=== PATIENT | female | born 1955 | race Caucasian/White ===

== ENCOUNTER 2016-08-02 00:44 | Inpatient (IN) | payer OTHER, MEDICARE ==
[~2016-08-02] VITALS: Ht 157.5 cm; Wt 66.9 kg
[2016-08-02] VITALS (13 sets, daily range): BP systolic 104–147; BP diastolic 62–93; PULSE 59–115; RESP 14–22; TEMP 97.2–98.3; O2SAT 90–96
[2016-08-02] MEDS ORDERED: HYDROmorphone HCL PF 1 MG/ML VIAL IV PUSH ONE (01:15)
--- NOTE | 2016-08-02 02:03 | PD ---
HPI Chief Complaint: Fall Time Seen by Provider: 01:11 Travel History International Travel<30 days: No Contact w/Intl Traveler<30days: No Traveled to known affect area: No History of Present Illness HPI This is a 61-year-old female who presents to the emergency department having had a mechanical fall while intoxicated. Patient admits to drinking multiple alcoholic beverages this evening. She fell onto her right hip and has severe right hip pain, constant, worse with moving, improved with rest. She doesn't think she hit her head. PFSH Past Medical History Hepatitis: Yes (C) Hypertension: Yes Medical other: Yes (LIVER FAILURE, LUPUS) Past Surgical History Surgical History: No Previous Surgery Social History Alcohol Use: Yes (OCCATIONALLY) Tobacco Use: Yes (04/02 PPD) Substance Use: No Allergies-Medications (Allergen,Severity, Reaction): Coded Allergies: Sulfa (Verified Allergy, Unknown, 08/02/16) Review of Systems ROS Limitations: Intoxication Physical Exam Narrative GENERAL: Chronically unwell-appearing SKIN: Focused skin assessment warm and dry. HEAD: Atraumatic. Normocephalic. EYES: Pupils equal and round. No injection or drainage. ENT: Moist mucous membranes NECK: Trachea midline. CARDIOVASCULAR: Regular rate and rhythm. No murmur appreciated. 2+ bilateral DP pulses with normal capillary refill. RESPIRATORY: Clear to auscultation. Breath sounds equal bilaterally. GASTROINTESTINAL: Abdomen soft, non-tender, nondistended. MUSCULOSKELETAL: Severe pain with range of motion of the right hip, right hip is externally rotated and shortened NEUROLOGICAL: Awake and alert. No obvious cranial nerve deficits. Moving all extremities. PSYCHIATRIC: Poor insight and judgment, slurred speech, poor coordination Data Data Last Documented VS Vital Signs Date Time Temp Pulse Resp B/P Pulse Ox O2 Delivery O2 Flow Rate FiO2 08/02/16 05:18 112 16 145/89 92 Nasal Cannula 6 08/02/16 03:33 50 08/02/16 00:54 98.0 Orders Hip, Uni(Ap&Lat) W Ap Pelvis (08/02/16 ) Hydromorphone Pf Inj (Dilaudid Pf Inj) (08/02/16 01:15) Complete Blood Count With Diff (08/02/16 01:12) Comprehensive Metabolic Panel (08/02/16 01:12) Prothrombin Time / Inr (Pt) (08/02/16 01:12) Act Partial Throm Time (Ptt) (08/02/16 01:12) Alcohol (Ethanol) (08/02/16 01:12) ^ Insert Iv (08/02/16 01:12) Chest, Single Ap (08/02/16 ) Ct Brain W/O Iv Contrast(Rout) (08/02/16 ) Ct Thorax/ Chest W Iv Contrast (08/02/16 ) Iohexol 350 Inj (Omnipaque 350 Inj) (08/02/16 03:15) Naloxone Inj (Narcan Inj) (08/02/16 05:15) Admit Order (Ed Use Only) (08/02/16 05:20) Consult Orthopedic (08/02/16 ) Labs Laboratory Tests Test 08/02/16 01:50 White Blood Count 12.8 TH/MM3 Red Blood Count 4.31 MIL/MM3 Hemoglobin 14.5 GM/DL Hematocrit 42.3 % Mean Corpuscular Volume 98.0 FL Mean Corpuscular Hemoglobin 33.6 PG Mean Corpuscular Hemoglobin 34.3 % Concent Red Cell Distribution Width 16.3 % Platelet Count 122 TH/MM3 Mean Platelet Volume 9.1 FL Neutrophils (%) (Auto) 60.2 % Lymphocytes (%) (Auto) 27.4 % Monocytes (%) (Auto) 10.9 % Eosinophils (%) (Auto) 1.0 % Basophils (%) (Auto) 0.5 % Neutrophils # (Auto) 7.7 TH/MM3 Lymphocytes # (Auto) 3.5 TH/MM3 Monocytes # (Auto) 1.4 TH/MM3 Eosinophils # (Auto) 0.1 TH/MM3 Basophils # (Auto) 0.1 TH/MM3 CBC Comment DIFF FINAL Differential Comment Prothrombin Time 13.2 SEC Prothromb Time International 1.2 RATIO Ratio Activated Partial 29.2 SEC Thromboplast Time Sodium Level 142 MEQ/L Potassium Level 4.0 MEQ/L Chloride Level 107 MEQ/L Carbon Dioxide Level 25.4 MEQ/L Anion Gap 10 MEQ/L Blood Urea Nitrogen 7 MG/DL Creatinine 0.54 MG/DL Estimat Glomerular Filtration 115 ML/MIN Rate Random Glucose 106 MG/DL Calcium Level 8.4 MG/DL Total Bilirubin 2.1 MG/DL Aspartate Amino Transf 52 U/L (AST/SGOT) Alanine Aminotransferase 38 U/L (ALT/SGPT) Alkaline Phosphatase 87 U/L Total Protein 7.2 GM/DL Albumin 3.5 GM/DL Ethyl Alcohol Level 324 MG/DL [facility] Medical Decision Making Medical Screen Exam Complete: Yes Emergency Medical Condition: Yes Interpretation(s) Afebrile, tachycardic, hypertensive Leukocytosis Total bilirubin is 2.1 INR is 1.2 Alcohol is 324 Last 24 hours Impressions Hip and Pelvis X-Ray 08/02/16 Signed Impressions: Service Date/Time: Tuesday, August 02, 2016 01:41 - CONCLUSION: Mildly displaced right femoral neck fracture. Rey Santacruz MD Head CT 08/02/16 Signed Impressions: Service Date/Time: Tuesday, August 02, 2016 03:11 - CONCLUSION: Nonspecific white matter changes. No acute intracranial abnormality. Rey Santacruz MD Chest X-Ray 08/02/16 Signed Impressions: Service Date/Time: Tuesday, August 02, 2016 01:41 - CONCLUSION: 1. Scattered nodules. 2. Widened mediastinum which could be related to adenopathy or aneurysm. 3. Contrasted CT chest recommended. Rey Santacruz MD Chest CT 08/02/16 Signed Impressions: Service Date/Time: Tuesday, August 02, 2016 03:15 - CONCLUSION: 1. Bibasilar atelectasis. 2. No mass, adenopathy or aneurysm. 3. Cirrhotic liver with cholelithiasis. Rey Santacruz MD Differential Diagnosis Femur fracture, pubic ramus fracture, contusion, acute alcohol intoxication Narrative Course This is a 61-year-old female who presents to the emergency department having been drinking alcohol when she fell. She has gross deformity to the right lower extremity. She was placed on a monitor and an IV was established. She was given 0.5 mg of Dilaudid for pain control. X-rays were obtained which demonstrated a right femoral neck fracture. Patient has no other evident injuries. She was really hypoxic particularly with sleeping. This is likely in the setting of acute alcohol intoxication and opiate pain management. She was given a small dose of Narcan which improved her oxygenation. Patient will be admitted for orthopedic consultation. Physician Communication Physician Communication Discussed with Dr. Ruelas Diagnosis Primary Impression: Femoral neck fracture Qualified Code: S72.001A - Closed fracture of neck of right femur, initial encounter Additional Impression: Acute alcohol intoxication Qualified Code: F10.920 - Acute alcohol intoxication, uncomplicated Admitting Information Admitting Physician Requests: it Zainab Jo MD August 02, 2016 02:03
[2016-08-02 02:14] LABS: AUTOMATED NEUTROPHIL # 7.7 TH/MM3 (1.8-7.7); BASOPHIL # 0.1 TH/MM3 (0-0.2); BASOPHIL % 0.5 % (0.0-2.0); EOSINOPHIL # 0.1 TH/MM3 (0-0.4); HEMATOCRIT 42.3 % (35.0-46.0); HEMO FLAGS DIFF FINAL; LYMPH % 27.4 % (9.0-44.0); LYMPHOCYTE # 3.5 TH/MM3 (1.0-4.8); MEAN CORPUSCULAR HEMOGLOBIN 33.6 PG (27.0-34.0); MEAN CORPUSCULAR HGB CONC 34.3 % (32.0-36.0); MONO % 10.9 % (0.0-8.0); NEUT % 60.2 % (16.0-70.0); PLATELET COUNT 122 TH/MM3 (150-450); RED BLOOD COUNT 4.31 MIL/MM3 (4.00-5.30); RED CELL DISTRIBUTION WIDTH 16.3 % (11.6-17.2); WHITE BLOOD COUNT 12.8 TH/MM3 (4.0-11.0)
--- NOTE | 2016-08-02 02:17 | RADRPT ---
EXAM DATE/TIME: 08/02/2016 01:41 [facility] COMPARISON: No previous studies available for comparison. INDICATIONS : Right hip pain from a fall. MEDICAL HISTORY : Hepatitis C. SURGICAL HISTORY : None. ENCOUNTER: Initial ACUITY: 1 day PAIN SCORE: 10/10 LOCATION: Right Hip FINDINGS: Examination of the right hip was performed with AP Pelvis. Mildly displaced femoral neck fracture. T he acetabulum is grossly intact. CONCLUSION: Mildly displaced right femoral neck fracture. Rey Santacruz MD on August 02, 2016 at 2:15 Board Certified Radiologist. This report was verified electronically.
--- NOTE | 2016-08-02 02:20 | RADRPT ---
EXAM DATE/TIME: 08/02/2016 01:41 [facility] COMPARISON: No previous studies available for comparison. INDICATIONS : Evaluate for any pulmonary disease as patient is pre-op for right hip surgery. MEDICAL HISTORY : Hepatitis C. SURGICAL HISTORY : None. ENCOUNTER: Initial ACUITY: 1 day PAIN SCORE: 0/10 LOCATION: Bilateral chest FINDINGS: A single view of the chest demonstrates prominent perispinal prominence/wide mediastinum. The heart m ildly enlarged. Few small nodular densities in the upper lobes. No consolidation or pleural effusion. . Osseous structures are intact. CONCLUSION: 1. Scattered nodules. 2. Widened mediastinum which could be related to adenopathy or aneurysm. 3. Contrasted CT chest recommended. Rey Santacruz MD on August 02, 2016 at 2:16 Board Certified Radiologist. This report was verified electronically.
[2016-08-02 02:22] LABS: APTT (PATIENT) 29.2 SEC (24.3-30.1); INTERNATIONAL NORMALIZED RATIO 1.2 RATIO; PROTHROMBIN TIME - PATIENT 13.2 SEC (9.8-11.6)
[2016-08-02 02:38] LABS: ALKALINE PHOSPHATASE 87 U/L (45-117); ALT (GPT) 38 U/L (10-53); ANION GAP 10 MEQ/L (5-15); AST (GOT) 52 U/L (15-37); BICARBONATE 25.4 MEQ/L (21.0-32.0); BLOOD UREA NITROGEN 7 MG/DL (7-18); CHLORIDE 107 MEQ/L (98-107); GLOMERULAR FILTRATION RATE 115 ML/MIN (>89); SODIUM (NA) 142 MEQ/L (136-145); TOTAL BILIRUBIN ADULT 2.1 MG/DL (0.2-1.0)
[2016-08-02] MEDS ORDERED: IOHEXOL 350 MG/ML 10 ML VIAL (for RAD DIAG) IV ONE (03:15)
--- NOTE | 2016-08-02 03:33 | RADRPT ---
EXAM DATE/TIME: 08/02/2016 03:11 [facility] COMPARISON: No previous studies available for comparison. INDICATIONS : Trauma; fall. ETOH RADIATION DOSE: 56.35 CTDIvol (mGy) MEDICAL HISTORY : Hypertension. Lupus. Hepatitis C. SURGICAL HISTORY : None. ENCOUNTER: Initial ACUITY: 1 day PAIN SCALE: Non-responsive LOCATION: cranial TECHNIQUE: Multiple contiguous axial images were obtained of the head. Using automated exposure control and adj ustment of the mA and/or kV according to patient size, radiation dose was kept as low as reasonably a chievable to obtain optimal diagnostic quality images. FINDINGS: CEREBRUM: Scattered areas low-attenuation throughout the white matter. The ventricles are normal for age. No e vidence of midline shift, mass lesion, hemorrhage or acute infarction. No extra-axial fluid collecti ons are seen. POSTERIOR FOSSA: The cerebellum and brainstem are intact. The 4th ventricle is midline. The cerebellopontine angle i s unremarkable. EXTRACRANIAL: The visualized portion of the orbits is intact. SKULL: The calvaria is intact. No evidence of skull fracture. CONCLUSION: Nonspecific white matter changes. No acute intracranial abnormality. Rey Santacruz MD on August 02, 2016 at 3:30 Board Certified Radiologist. This report was verified electronically.
--- NOTE | 2016-08-02 03:34 | RADRPT ---
EXAM DATE/TIME: 08/02/2016 03:15 [facility] COMPARISON: CHEST SINGLE AP, August 02, 2016, 1:41. INDICATIONS : Abnormal chest x-ray. IV CONTRAST: 71 cc Omnipaque 350 (iohexol) IV RADIATION DOSE: 3.4 CTDIvol (mGy) MEDICAL HISTORY : Hypertension. Lupus. Hepatitis C. SURGICAL HISTORY : None. ENCOUNTER: Initial ACUITY: 1 day PAIN SCALE: Non-responsive LOCATION: chest TECHNIQUE: Volumetric scanning of the chest was performed. Using automated exposure control and adjustment of t he mA and/or kV according to patient size, radiation dose was kept as low as reasonably achievable to obtain optimal diagnostic quality images. FINDINGS: LUNGS: There is no consolidation or pneumothorax. There is bibasilar atelectasis. No concerning pulmonary n odule is visualized. PLEURA: There is no pleural thickening or pleural effusion. MEDIASTINUM: The heart and great vessels demonstrate no acute abnormality. There is no mediastinal or hilar lymph adenopathy. AXILLAE: Within normal limits. No lymphadenopathy. SKELETAL: Within normal limits for patient age. MISCELLANEOUS: The visualized upper abdominal organs demonstrate no acute abnormality. Cirrhotic liver with cholelit hiasis. CONCLUSION: 1. Bibasilar atelectasis. 2. No mass, adenopathy or aneurysm. 3. Cirrhotic liver with cholelithiasis. Rey Santacruz MD on August 02, 2016 at 3:31 Board Certified Radiologist. This report was verified electronically.
[2016-08-02] MEDS ORDERED: NALOXONE HCL 0.4 MG/ML AMP IV PUSH ONE (05:15)
[2016-08-02] MEDS ORDERED: ONDANSETRON HCL 4 MG/2 ML VIAL IVP PRN (05:30)
[2016-08-02] MEDS ORDERED: LORazepam 2 MG/ML VIAL IV PUSH PRN ×4 (05:30)
[2016-08-02] MEDS ORDERED: SODIUM CHLORIDE 0.9% FLUSH 10 ML FLUSH IV FLUSH PRN (05:30)
[2016-08-02] MEDS ORDERED: LORazepam 2 MG TAB PO PRN (05:30)
[2016-08-02] MEDS ORDERED: HALOPERIDOL LACTATE 5 MG/ML AMP IM PRN (05:30)
[2016-08-02] MEDS ORDERED: MORPHINE SULFATE 4 MG/ML INJ IV PRN (05:30)
[2016-08-02] MEDS ORDERED: ACETAMINOPHEN 325 MG TAB PO PRN (05:30)
[2016-08-02] MEDS ORDERED: LORazepam 1 MG TAB PO PRN (05:30)
[2016-08-02] MEDS ORDERED: ACETAMINOPHEN/HYDROcodone 325 MG/5 MG TAB PO PRN (05:30)
[2016-08-02] MEDS ORDERED: FLUMAZENIL 0.5 MG/5 ML VIAL IV PUSH PRN (05:30)
[2016-08-02] MEDS ORDERED: BISACODYL 10 MG SUPP RECTAL PRN (05:30)
[2016-08-02] MEDS: MULTIVITAMIN INJ 10 ML, FOLIC ACID INJ 1 MG in SODIUM CHLORID 0.9% 500 ML INJ 500 ML IV SCH (06:00)
[2016-08-02] MEDS: THIAMINE INJ 100 MG in SODIUM CHLORIDE 0.9% INJ 100 ML IV SCH (06:00)
--- NOTE | 2016-08-02 06:43 | PD.ORT.PN ---
Subjective Subjective Remarks Patient examined bedside. Mechanical fall last night after having several alcoholic drinks. Complains of severe right hip pain. Objective Vitals Vital Signs Date Time Temp Pulse Resp B/P Pulse Ox O2 Delivery O2 Flow Rate FiO2 08/02/16 05:42 93 Nasal Cannula 5.00 08/02/16 05:18 112 16 145/89 92 Nasal Cannula 6 08/02/16 03:33 112 14 126/69 90 50 08/02/16 03:32 14 08/02/16 02:03 93 16 126/85 94 Nasal Cannula 2 08/02/16 00:54 98.0 102 16 132/93 95 Result Diagram: 08/02/16 0150 08/02/16 0150 Other Results Laboratory Tests Test 08/02/16 01:50 Prothrombin Time 13.2 SEC (9.8-11.6) Prothromb Time International 1.2 RATIO Ratio Imaging Last 24 hours Impressions Hip and Pelvis X-Ray 08/02/16 0000 Signed Impressions: Service Date/Time: Tuesday, August 02, 2016 01:41 - CONCLUSION: Mildly displaced right femoral neck fracture. Rey Santacruz MD Head CT 08/02/16 0000 Signed Impressions: Service Date/Time: Tuesday, August 02, 2016 03:11 - CONCLUSION: Nonspecific white matter changes. No acute intracranial abnormality. Rey Santacruz MD Chest X-Ray 08/02/16 0000 Signed Impressions: Service Date/Time: Tuesday, August 02, 2016 01:41 - CONCLUSION: 1. Scattered nodules. 2. Widened mediastinum which could be related to adenopathy or aneurysm. 3. Contrasted CT chest recommended. Rey Santacruz MD Chest CT 08/02/16 0000 Signed Impressions: Service Date/Time: Tuesday, August 02, 2016 03:15 - CONCLUSION: 1. Bibasilar atelectasis. 2. No mass, adenopathy or aneurysm. 3. Cirrhotic liver with cholelithiasis. Rey Santacruz MD Objective Remarks Bilateral upper extremities: Full range of motion neurovascular intact Left lower extremity no pain with hip range of motion Right lower extremity: No pain to palpation of knee or ankle. Distally she has intact sensation good capillary refills. Pain with any motion of the hip Assessment & Plan Assessment and Plan Right femoral neck fracture Nothing by mouth Sign consents Surgery this morning with Dr. Peoples Medical management with EtOH protocol Camilo Brunner Jr. August 02, 2016 06:43
[2016-08-02] MEDS ORDERED: METOPROLOL TARTRATE 25 MG TAB PO PRN (07:15)
[2016-08-02] MEDS ORDERED: POVIDONE IODINE 5% (ANTISEPSIS KIT) 4 APPLICATIONS EACH NARE PRN (07:15)
[2016-08-02] MEDS ORDERED: CHLORHEXIDINE GLUCONATE 2 % 1 PACK (2 CLOTHS) TOPICAL PRN (07:15)
[2016-08-02] MEDS ORDERED: LACTATED RINGER'S 1000 ML IV PRN (07:15)
[2016-08-02] MEDS ORDERED: INSULIN HUMAN REGULAR 1,000 UNITS/10 ML VIAL SQ PRN (07:15)
[2016-08-02] MEDS ORDERED: SODIUM CHLORID 0.9% 500 ML IV PRN (07:15)
[2016-08-02] MEDS ORDERED: VANCOMYCIN HCL 1000 MG VIAL ONE (07:25)
[2016-08-02] MEDS ORDERED: GENTAMICIN SULFATE 80 MG/2 ML VIAL ONE (07:25)
[2016-08-02] MEDS ORDERED: fentaNYL CITRATE 250 MCG/5 ML AMP ONE (07:36)
[2016-08-02] MEDS ORDERED: MIDAZOLAM HCL 5 MG/5 ML VIAL ONE (07:36)
[2016-08-02] MEDS ORDERED: ceFAZolin INJ 1,000 MG VIAL ONE (07:43)
[2016-08-02] MEDS ORDERED: ceFAZolin 2 GM PREMIX 50 ML ONE (07:43)
[2016-08-02] MEDS ORDERED: TRANEXAMIC ACID INJ 1,000 MG/10 ML AMP ONE (07:54)
[2016-08-02] MEDS ORDERED: TRANEXAMIC ACID INJ 855 MG in SODIUM CHLORIDE 0.9% INJ 100 ML IV SCH (08:00)
[2016-08-02] MEDS ORDERED: SODIUM CHLORIDE 0.9% INJ 100 ML ONE (08:01)
[2016-08-02] MEDS ORDERED: TRANEXAMIC ACID INJ 1,000 MG/10 ML AMP IV ONE (08:03)
--- NOTE | 2016-08-02 08:57 | PD.OP ---
cc: Shekhar Guzman MD Operative Report Date of Surgery: August 02, 2016 Preoperative Diagnosis: Displaced right femoral neck fracture Postoperative Diagnosis: Procedure: Right hip hemiarthroplasty Surgeon: Shekhar Guzman Necktie Stitcher(s): ANSHUL Aldridge PA-C The surgical procedure was assisted by my physician elementary assistant principal. My P.A. presence was necessary throughout this case for the manipulation and positioning of the surgical extremity. My P.A. was assisting me throughout the duration of this procedure. The skill set of a physician elementary assistant principal was medically necessary to complete this procedure. During the surgical case the gastroenterology technician was working at the back table and the physician elementary assistant principal was directly assisting me. Operation and Findings: PLAN OF ACTIVITY Weight bear as tolerated. IMPLANTS USED [employer] Corail size 12 collared stem with size [47] bipolar head and [+5] neck. DRAIN: 7 mm Murray-Jorgensen drain DETAILS OF PROCEDURE This patient was brought into the operating room and placed on the OR table. The patient was given anesthesia. The patient received IV antibiotics. The patient was then placed in lateral decubitus position. The hip and leg were prepped with alcohol, followed by Hibiclens and draped in a usual sterile fashion. Clean air was used for this procedure. Time out procedure was performed. The procedure began with a 5 inch incision over the posterolateral hip. The subcutaneous tissue was dissected with the Bovie. The iliotibial band were split in line with fibers. The Charnley retractor was placed. The piriformis and external rotators were released from the femur and tagged with a #1 Vicryl suture. The capsule is now incised and tagged with #1 Vicryl. The femoral neck fracture was now visualized. A corkscrew was now used to remove the femoral head. The femoral head was sized and measured. Soft tissue was now protected. The hip skid was placed underneath the femoral neck. An oscillating saw was used to make a femoral neck cut. At this point attention was turned to preparation of the proximal femur. A box osteotome was used to remove the lateral cortex of the femoral neck. The T- handle reamer was used to open the femoral canal. Next, the canal was broached. A lateralizing reamer was used to help lateralize the prosthesis. At this point a trial head and neck were placed. The hip was reduced. The patient was found to have excellent stability with good range of motion. Trial components were removed. Soft tissue and bone were thoroughly irrigated. A Corail stem was now opened. The stem was now impacted into the proximal femur. Care was taken to keep appropriate anteversion. The head and neck were now impacted onto the stem. The hip was again reduced. The hip was found to have good range of motion and good stability. Leg lengths were clinically equal. The wound was thoroughly irrigated. The capsule, piriformis and iliotibial band were closed with #1 Vicryl. Subcutaneous tissue was closed with 3-0 Vicryl. The skin was closed with kyara. A sterile dressing was applied with Primapore. The patient was placed into a knee immobilizer. The patient was awakened and transferred to the recovery room in stable condition. Needle and sponge counts were correct. Shekhar Guzman MD August 02, 2016 08:57
[2016-08-02] MEDS ORDERED: MORPHINE SULFATE 4 MG/ML INJ IV PUSH PRN (09:00)
[2016-08-02] MEDS ORDERED: SODIUM CHLORIDE 0.9% FLUSH 5 ML FLUSH IVF PRN (09:00)
[2016-08-02] MEDS ORDERED: SODIUM CHLORIDE 0.9% FLUSH 5 ML FLUSH IVF SCH (09:00)
[2016-08-02] MEDS ORDERED: ACETAMINOPHEN/HYDROcodone 325 MG/7.5 MG TAB PO PRN (09:00)
[2016-08-02] MEDS: SODIUM CHLORIDE 0.9% FLUSH 10 ML FLUSH IV FLUSH SCH ×2 (09:00→20:47)
[2016-08-02] MEDS ORDERED: Post-op Orders (for Pharmacy) MISC XX ONE (09:00)
[2016-08-02] MEDS ORDERED: ERGO1CAP30 PO (09:15)
[2016-08-02] MEDS ORDERED: WALKER/ADULT/FO1 MIS (09:15)
[2016-08-02] MEDS ORDERED: VITA2000 PO (09:15)
[2016-08-02] MEDS ORDERED: CALCTAB19 PO (09:15)
[2016-08-02] MEDS ORDERED: HYDR-3288 PO (09:15)
[2016-08-02] MEDS ORDERED: DO NOT ADM ANY ANTICOAGULANT DRUGS PRN (09:19)
[2016-08-02] MEDS: CHOLECALCIFEROL (VIT D3) 5000 UNIT CAP PO SCH (09:30)
[2016-08-02] MEDS ORDERED: *RESP: ALBUTEROL 2.5 MG/3 ML NEB (PRN) PERIprocedural Use ONLY NEB ONE (09:34)
--- NOTE | 2016-08-02 09:40 | MB ---
cc: NATACHA GUZMÁN MD, TODD DATE OF CONSULTATION: 08/02/2016 REASON FOR CONSULTATION: Right femoral neck fracture. CONSULTING PHYSICIAN Dr Guzmán. HISTORY Leeann is a 61-year-old female who was intoxicated. She had been drinking alcohol yesterday evening. She fell, landed on her right hip. She had immediate right hip pain. She has not been able to stand or ambulate. She is currently awake and alert on the orthopedic floor. She complains of right hip pain. Pain is worse with any movement. She denies any pain there prior to her fall. PAST MEDICAL HISTORY/ILLNESSES 1. History of Hepatitis C 2. Hypertension. 3. Liver failure 4. Lupus. SURGERIES None. ALLERGIES SULFA MEDICATIONS Please see EMR for Complete list of inpatient medications. SOCIAL HISTORY The patient drinks alcohol. She smokes cigarettes. She denies drug use. FAMILY HISTORY: Family history is noncontributory. REVIEW OF SYSTEMS The patient denies headache, visual changes, neck pain, chest pain, shortness of breath, abdominal pain, nausea and vomiting or recent weight loss. She complains of left hip pain. PHYSICAL EXAMINATION IN GENERAL: The patient is a thin 61-year-old female who appears older than stated age. She is awake and alert. VITAL SIGNS: Temperature 98.0, pulse 102, respirations 16, blood pressure 132/93, O2 sat 95% on room air. HEAD, EARS, EYES, NOSE, AND THROAT: The patient is normocephalic. Pupils are equal. NECK: The neck is soft, nontender. Trachea is midline. ABDOMEN: Soft, nontender, nondistended. EXTREMITIES: Examination of the bilateral upper extremities reveals no significant pain with shoulder, elbow or wrist motion. She has intact sensation in all fingers. She has good cap refill fingers. Skin is intact. Radial pulses are palpable. Examination of left leg reveals no significant pain with hip, knee or ankle motion. Skin is intact. Dorsalis pedis pulses palpable. Sensation is intact. Examination of right leg reveals pain with any hip motion. She has no tenderness around the tibia or ankle. Skin is intact. Dorsalis pedis pulses palpable. Sensation is intact. X-RAYS X-rays of right hip reviewed x-rays reveal a displaced right femoral neck fracture. IMPRESSION 1. Possible alcohol abuse 2. Tobacco dependence 3. Displaced right femoral neck fracture 4. Liver failure. PLAN The treatment options were discussed with the patient. At this point I would recommend right hip hemiarthroplasty. Risks of surgery include bleeding, infection, injuries to arteries, nerves and blood vessels, hip dislocation, leg length discrepancy, fracture femur, infection as well as medical complications including blood clot, stroke, heart attack and . All questions were answered. I will plan on surgery today. A mid-level provider in my office (nurse practitioner or physician seismic survey assistant) may see this patient on follow-up visits and continue to implement the objectives of this plan including: Starting or adjusting medications, injections , cast application, orthotics, brace application, physical therapy, radiological studies (including x-ray, MRI, CT, ultrasound, bone scan), vascular studies, neurologic studies, specialist consultation, and proceeding with surgical management, as appropriate. MD MARIELLE Jackson/carlos /6:56 AM /9:28 AM DARA
[2016-08-02] MEDS ORDERED: ERGOCALCIFEROL (VIT D2) 50,000 UNIT CAP PO ONE (10:00)
--- NOTE | 2016-08-02 10:04 | RADRPT ---
EXAM DATE/TIME: 08/02/2016 09:21 [facility] COMPARISON: HIP RIGHT (AP&LAT 2/3VWS) W AP PELVIS, August 02, 2016, 1:41. INDICATIONS : Post op right hip replacement. MEDICAL HISTORY : Hepatitis C. SURGICAL HISTORY : None. ENCOUNTER: Subsequent ACUITY: 1 day PAIN SCORE: Non-responsive. LOCATION: Right hip/pelvis. FINDINGS: AP and crosstable lateral views of the right hip were obtained and demonstrate the patient is status post arthroplasty. The femoral and acetabular components are intact and in normal alignment. There is a surgical drain in place with soft tissue swelling and overlying surgical skin kyara. CONCLUSION: Expected postoperative change status post right hip arthroplasty. Camilo Norman MD on August 02, 2016 at 10:01 Board Certified Radiologist. This report was verified electronically.
[2016-08-02] MEDS ORDERED: *MEPERIDINE 25 MG INJ VIAL PERIprocedural Use ONLY ONE (10:08)
[2016-08-02] MEDS: ACETAMINOPHEN/HYDROcodone 325 MG/7.5 MG TAB PO PRN ×3 (11:47→22:27)
[2016-08-02] MEDS: RESP: ALBUTEROL 2.5 MG/IPRATROPIUM 0.5 MG NEB (PRN) NEB (12:50)
[2016-08-02] MEDS ORDERED: NEOSTIGMINE 3 MG/3 ML SYR IV ONE (13:13)
[2016-08-02] MEDS ORDERED: PHENYLEPH/NS 1000 MCG/10 ML SYR IV ONE (13:13)
[2016-08-02] MEDS ORDERED: ONDANSETRON HCL 4 MG/2 ML VIAL IV PUSH ONE (13:13)
[2016-08-02] MEDS ORDERED: SODIUM CHLOR 0.9% 250 ML INJ 250 ML IV ONE (13:13)
[2016-08-02] MEDS ORDERED: PROPOFOL 200 MG/20 ML AMP IV ONE (13:13)
[2016-08-02] MEDS: ceFAZolin 2 GM PREMIX 50 ML IV SCH ×2 (14:19→20:40)
--- NOTE | 2016-08-02 17:37 | HHI.HP ---
[facility] Service [facility] Primary Care Physician Unknown Admission Diagnosis femoral neck fracture Diagnoses: Chief Complaint: Right hip pain Travel History International Travel<30 Days: No Contact w/Intl Traveler <30 Da: No Traveled to Known Affected Are: No History of Present Illness Ms. Jorge is a 61-year-old female with a history of liver cirrhosis who presents to the emergency department on 08/02/2016 after a mechanical fall causing her to have immediate right hip pain. Patient was drinking alcohol in the evening and she fell from her stationary car. Imaging studies indicated mildly displaced right femoral neck fracture. Orthopedic surgery was consulted. Patient underwent right hip hemiarthroplasty. At the time of this interview, patient denies any chest pain, shortness of breath, fever or chills. She denies any changes in her bowel or bladder habits. She reports some anxiety. Denies any weight loss. Review of Systems Except as stated in HPI: all other systems reviewed are Neg Past Family Social History Past Medical History Liver cirrhosis, lupus, rheumatoid arthritis, hepatitis C Past Surgical History Right ankle surgery, tubal ligation, tonsillectomy Reported Medications Reported medications include [place], calcium plus D, vitamin D3, and ergocalciferol. Allergies: Coded Allergies: Sulfa (Verified Allergy, Unknown, 08/02/16) Family History No family history of Alzheimer's or Parkinson's. Social History Patient reports smoking 3-4 cigarettes a day. Drinks socially. Denies using illicit drugs. Physical Exam Vital Signs Vital Signs Date Time Temp Pulse Resp B/P Pulse Ox O2 Delivery O2 Flow Rate FiO2 08/02/16 16:00 98.3 115 20 113/71 95 08/02/16 12:53 94 Nasal Cannula 4.00 08/02/16 11:54 97.2 101 20 104/73 94 08/02/16 10:30 97.5 96 20 132/81 95 Nasal Cannula 4 08/02/16 10:15 104 20 121/74 95 Nasal Cannula 4 08/02/16 10:00 105 20 125/81 95 Nasal Cannula 4 08/02/16 09:45 106 20 127/84 95 Nasal Cannula 4 08/02/16 09:30 109 20 138/90 92 Nasal Cannula 4 08/02/16 09:15 97.5 107 20 124/79 96 Simple Mask 10 08/02/16 07:30 97.3 104 22 118/83 93 08/02/16 05:42 93 Nasal Cannula 5.00 08/02/16 05:18 112 16 145/89 92 Nasal Cannula 6 08/02/16 03:33 112 14 126/69 90 50 08/02/16 03:32 14 08/02/16 02:03 93 16 126/85 94 Nasal Cannula 2 08/02/16 00:54 98.0 102 16 132/93 95 Physical Exam GENERAL: This is a well-nourished, well-developed patient, in no apparent distress. SKIN: No rashes, ecchymoses or lesions. Warm and dry. HEAD: Atraumatic. Normocephalic. No temporal or scalp tenderness. EYES: Pupils equal round and reactive. No injection or drainage. ENT: Nose without bleeding, purulent drainage or septal hematoma. Airway patent. NECK: Trachea midline. No lymphadenopathy. Supple, nontender, no meningeal signs. CARDIOVASCULAR: Regular rate and rhythm without murmurs, gallops, or rubs. No JVD. RESPIRATORY: Clear to auscultation. Breath sounds equal bilaterally. No wheezes , rales, or rhonchi. GASTROINTESTINAL: Abdomen soft, non-tender, nondistended. No guarding. MUSCULOSKELETAL: Extremities without clubbing, cyanosis, or edema. NEUROLOGICAL: Awake and alert. Cranial nerves II through XII intact. No focal neurological deficits. Normal speech. Laboratory Laboratory Tests Test 08/02/16 01:50 White Blood Count 12.8 Red Blood Count 4.31 Hemoglobin 14.5 Hematocrit 42.3 Mean Corpuscular Volume 98.0 Mean Corpuscular Hemoglobin 33.6 Mean Corpuscular Hemoglobin 34.3 Concent Red Cell Distribution Width 16.3 Platelet Count 122 Mean Platelet Volume 9.1 Neutrophils (%) (Auto) 60.2 Lymphocytes (%) (Auto) 27.4 Monocytes (%) (Auto) 10.9 Eosinophils (%) (Auto) 1.0 Basophils (%) (Auto) 0.5 Neutrophils # (Auto) 7.7 Lymphocytes # (Auto) 3.5 Monocytes # (Auto) 1.4 Eosinophils # (Auto) 0.1 Basophils # (Auto) 0.1 CBC Comment DIFF FINAL Differential Comment Prothrombin Time 13.2 Prothromb Time International 1.2 Ratio Activated Partial 29.2 Thromboplast Time Sodium Level 142 Potassium Level 4.0 Chloride Level 107 Carbon Dioxide Level 25.4 Anion Gap 10 Blood Urea Nitrogen 7 Creatinine 0.54 Estimat Glomerular Filtration 115 Rate Random Glucose 106 Calcium Level 8.4 Total Bilirubin 2.1 Aspartate Amino Transf 52 (AST/SGOT) Alanine Aminotransferase 38 (ALT/SGPT) Alkaline Phosphatase 87 Total Protein 7.2 Albumin 3.5 25-Hydroxy Vitamin D Total 22.1 Ethyl Alcohol Level 324 Result Diagram: 08/02/16 0150 08/02/16 0150 Imaging Last Impressions Hip and Pelvis X-Ray 08/02/16 0854 Signed Impressions: Service Date/Time: Tuesday, August 02, 2016 09:21 - CONCLUSION: Expected postoperative change status post right hip arthroplasty. Camilo Norman MD Head CT 08/02/16 0000 Signed Impressions: Service Date/Time: Tuesday, August 02, 2016 03:11 - CONCLUSION: Nonspecific white matter changes. No acute intracranial abnormality. Rey Santacruz MD Chest X-Ray 08/02/16 0000 Signed Impressions: Service Date/Time: Tuesday, August 02, 2016 01:41 - CONCLUSION: 1. Scattered nodules. 2. Widened mediastinum which could be related to adenopathy or aneurysm. 3. Contrasted CT chest recommended. Rey Santacruz MD Chest CT 08/02/16 0000 Signed Impressions: Service Date/Time: Tuesday, August 02, 2016 03:15 - CONCLUSION: 1. Bibasilar atelectasis. 2. No mass, adenopathy or aneurysm. 3. Cirrhotic liver with cholelithiasis. Rey Santacruz MD Assessment and Plan Problem List: (1) Femoral neck fracture ICD Code: S72.009A Status: Acute (2) Acute alcohol intoxication ICD Code: F10.929 Status: Acute (3) Anxiety ICD Code: F41.9 Status: Acute Assessment and Plan Ms. Jorge is a 61-year-old female with a history of liver cirrhosis who presents to the emergency department on 08/02/2016 after she sustained a right femoral neck fracture following a fall. Patient was drinking prior to this fall. Patient underwent right hip hemiarthroplasty on the day of admission. - Right-sided femoral neck fracture - Continue [place] and morphine for pain. - Milk of magnesia, Dulcolax suppository for bowel regimen. - Alcohol abuse - Continue CIWA protocol - Continue multivitamin, thiamine. - Anxiety - start BuSpar 10 mg every 8 hours. - Liver cirrhosis - no acute exacerbation. Full code. Lovenox. Physician Certification 2 Midnight Certification Type: Admission for Inpatient Services Order for Inpatient Services The services are ordered in accordance with Medicare regulations or non- Medicare payer requirements, as applicable. In the case of services not specified as inpatient-only, they are appropriately provided as inpatient services in accordance with the 2-midnight benchmark. Estimated LOS (days): 2 days is the estimated time the patient will need to remain in the hospital, assuming treatment plan goals are met and no additional complications. Post-Hospital Plan: SNF Problem Qualifiers (1) Femoral neck fracture: Qualified Code: S72.001A - Closed fracture of neck of right femur, initial encounter (2) Acute alcohol intoxication: Qualified Code: F10.920 - Acute alcohol intoxication, uncomplicated Mónica Vo DO August 02, 2016 17:37
[2016-08-02] MEDS ORDERED: busPIRone HCL 5 MG TAB PO ONE (18:30)
[2016-08-02] MEDS ORDERED: MAGNESIUM HYDROXIDE SUSP 30 ML CUP PO PRN (19:00)
[2016-08-02] MEDS: VANCOMYCIN INJ 1,000 MG in SODIUM CHLOR 0.9% 250 ML INJ 250 ML IV SCH (20:40)
[2016-08-02] MEDS: busPIRone HCL 10 MG TAB PO SCH (20:54)
[2016-08-03] VITALS (9 sets, daily range): BP systolic 120–158; BP diastolic 70–95; PULSE 97–114; RESP 16–21; TEMP 96.7–99.2; O2SAT 92–97
[2016-08-03] MEDS: ceFAZolin 2 GM PREMIX 50 ML IV SCH (02:00)
[2016-08-03 04:35] LABS: AUTOMATED NEUTROPHIL # 5.9 TH/MM3 (1.8-7.7); BASOPHIL % 0.1 % (0.0-2.0); EOSINOPHIL % 0.1 % (0.0-4.0); HEMATOCRIT 30.2 % (35.0-46.0); LYMPHOCYTE # 1.2 TH/MM3 (1.0-4.8); MEAN CORPUSCULAR HEMOGLOBIN 33.3 PG (27.0-34.0); MEAN CORPUSCULAR HGB CONC 34.3 % (32.0-36.0); MONO % 14.2 % (0.0-8.0); NEUT % 71.6 % (16.0-70.0); PLATELET COUNT 47 TH/MM3 (150-450); RED BLOOD COUNT 3.11 MIL/MM3 (4.00-5.30); RED CELL DISTRIBUTION WIDTH 15.4 % (11.6-17.2); WHITE BLOOD COUNT 8.2 TH/MM3 (4.0-11.0)
[2016-08-03 04:50] LABS: HEMO FLAGS AUTO DIFF
[2016-08-03 05:10] LABS: ALKALINE PHOSPHATASE 62 U/L (45-117); ALT (GPT) 28 U/L (10-53); ANION GAP 7 MEQ/L (5-15); AST (GOT) 51 U/L (15-37); BICARBONATE 30.2 MEQ/L (21.0-32.0); BLOOD UREA NITROGEN 7 MG/DL (7-18); CHLORIDE 105 MEQ/L (98-107); GLOMERULAR FILTRATION RATE 120 ML/MIN (>89); POTASSIUM 3.8 MEQ/L (3.5-5.1); SODIUM (NA) 142 MEQ/L (136-145); TOTAL BILIRUBIN ADULT 1.6 MG/DL (0.2-1.0)
[2016-08-03] MEDS: THIAMINE INJ 100 MG in SODIUM CHLORIDE 0.9% INJ 100 ML IV SCH (05:58)
[2016-08-03] MEDS: MULTIVITAMIN INJ 10 ML, FOLIC ACID INJ 1 MG in SODIUM CHLORID 0.9% 500 ML INJ 500 ML IV SCH (05:59)
[2016-08-03] MEDS: busPIRone HCL 10 MG TAB PO SCH ×3 (06:00→21:33)
--- NOTE | 2016-08-03 06:27 | PD.ORT.PN ---
Subjective Subjective Remarks POD 1 s/p right hip hemiarthroplasty doing well. pain controlled. no complaints. has not been out of bed yet Objective Vitals Vital Signs Date Time Temp Pulse Resp B/P Pulse Ox O2 Delivery O2 Flow Rate FiO2 08/03/16 04:05 99.2 99 17 120/75 94 08/03/16 01:04 Room Air 08/03/16 00:05 97.5 99 17 121/70 95 08/02/16 23:28 17 08/02/16 23:16 104 08/02/16 22:06 92 Nasal Cannula 4.00 08/02/16 20:05 97.6 95 17 121/83 96 08/02/16 17:17 111 08/02/16 16:00 98.3 115 20 113/71 95 08/02/16 12:53 94 Nasal Cannula 4.00 08/02/16 11:54 97.2 101 20 104/73 94 08/02/16 10:30 97.5 96 20 132/81 95 Nasal Cannula 4 08/02/16 10:15 104 20 121/74 95 Nasal Cannula 4 08/02/16 10:00 105 20 125/81 95 Nasal Cannula 4 08/02/16 09:45 106 20 127/84 95 Nasal Cannula 4 08/02/16 09:30 109 20 138/90 92 Nasal Cannula 4 08/02/16 09:15 97.5 107 20 124/79 96 Simple Mask 10 08/02/16 07:30 97.3 104 22 118/83 93 I/O 08/02/16 08/02/16 08/02/16 08/03/16 08/03/16 08/03/16 07:00 15:00 23:00 07:00 15:00 23:00 Intake Total 1020 ml 902 ml 321 ml Output Total 1699 ml 380 ml 40 ml Balance -679 ml 522 ml 281 ml Intake Oral 120 ml 240 ml IV Total 662 ml 321 ml Other 900 ml Output Urine Total 1450 ml 300 ml Drainage Total 124 ml 80 ml 40 ml Estimated Blood Loss 125 ml # Bowel Movements 0 0 Result Diagram: 08/03/16 0400 08/03/16 0400 Imaging Last 24 hours Impressions Hip and Pelvis X-Ray 08/02/16 0000 Signed Impressions: Service Date/Time: Tuesday, August 02, 2016 01:41 - CONCLUSION: Mildly displaced right femoral neck fracture. Rey Santacruz MD Head CT 08/02/16 0000 Signed Impressions: Service Date/Time: Tuesday, August 02, 2016 03:11 - CONCLUSION: Nonspecific white matter changes. No acute intracranial abnormality. Rey Santacruz MD Chest X-Ray 08/02/16 0000 Signed Impressions: Service Date/Time: Tuesday, August 02, 2016 01:41 - CONCLUSION: 1. Scattered nodules. 2. Widened mediastinum which could be related to adenopathy or aneurysm. 3. Contrasted CT chest recommended. Rey Santacruz MD Chest CT 08/02/16 0000 Signed Impressions: Service Date/Time: Tuesday, August 02, 2016 03:15 - CONCLUSION: 1. Bibasilar atelectasis. 2. No mass, adenopathy or aneurysm. 3. Cirrhotic liver with cholelithiasis. Rey Santacruz MD Objective Remarks RLE: dressings clean and dry. intact. +drain. +knee brace. NVI Assessment & Plan Assessment and Plan 1) Right femoral neck fracture s/p hemiarthroplasty - POD 1 WBAT posterior hip precautions knee brace while in bed DC drain POD 2 with dressing changes dressing changes POD 2 CM for rehab placement f/u with Dr Peoples or PA in 2 weeks Moiz Restrepo August 03, 2016 06:27
[2016-08-03] MEDS: ACETAMINOPHEN/HYDROcodone 325 MG/7.5 MG TAB PO PRN ×3 (08:32→21:33)
[2016-08-03] MEDS: CHOLECALCIFEROL (VIT D3) 5000 UNIT CAP PO SCH (08:32)
[2016-08-03] MEDS: ENOXAPARIN SODIUM 30 MG/0.3 ML SYRINGE SQ SCH (08:33)
[2016-08-03] MEDS: VANCOMYCIN INJ 1,000 MG in SODIUM CHLOR 0.9% 250 ML INJ 250 ML IV SCH (08:33)
[2016-08-03] MEDS: SODIUM CHLORIDE 0.9% FLUSH 10 ML FLUSH IV FLUSH SCH ×2 (08:34→21:34)
[2016-08-03 08:47] LABS: PLATELET ESTIMATE SMEAR LOW (NORMAL); PLATELET MORPHOLOGY NORMAL (NORMAL); SCAN/DIFF AUTO DIFF CONFIRMED
[2016-08-03] MEDS: RESP: ALBUTEROL 2.5 MG/IPRATROPIUM 0.5 MG NEB (PRN) NEB ×2 (09:15→21:49)
--- NOTE | 2016-08-03 16:27 | HHI.PR ---
Subjective Remarks Follow-up for right hip fracture following a fall. Patient is currently doing well. Denies any chest pain, shortness of breath, fever or chills. No bowel movement yet. Objective Vitals Vital Signs Date Time Temp Pulse Resp B/P Pulse Ox O2 Delivery O2 Flow Rate FiO2 08/03/16 12:00 98.3 108 20 133/88 92 08/03/16 09:15 Nasal Cannula 4.00 08/03/16 08:00 97.9 97 21 133/94 97 08/03/16 04:05 99.2 99 17 120/75 94 08/03/16 01:04 Room Air 08/03/16 00:05 97.5 99 17 121/70 95 08/02/16 23:28 17 08/02/16 23:16 104 08/02/16 22:06 92 Nasal Cannula 4.00 08/02/16 20:05 97.6 95 17 121/83 96 08/02/16 17:17 111 I/O 08/02/16 08/02/16 08/02/16 08/03/16 08/03/16 08/03/16 07:00 15:00 23:00 07:00 15:00 23:00 Intake Total 1020 ml 902 ml 921 ml Output Total 1699 ml 380 ml 540 ml Balance -679 ml 522 ml 381 ml Intake Oral 120 ml 240 ml 600 ml IV Total 662 ml 321 ml Other 900 ml Output Urine Total 1450 ml 300 ml 500 ml Drainage Total 124 ml 80 ml 40 ml Estimated Blood Loss 125 ml # Bowel Movements 0 0 0 Result Diagram: 08/03/16 0400 08/03/16 0400 Imaging Last Impressions Hip and Pelvis X-Ray 08/02/16 0854 Signed Impressions: Service Date/Time: Tuesday, August 02, 2016 09:21 - CONCLUSION: Expected postoperative change status post right hip arthroplasty. Camilo Norman MD Head CT 08/02/16 0000 Signed Impressions: Service Date/Time: Tuesday, August 02, 2016 03:11 - CONCLUSION: Nonspecific white matter changes. No acute intracranial abnormality. Rey Santacruz MD Chest X-Ray 08/02/16 0000 Signed Impressions: Service Date/Time: Tuesday, August 02, 2016 01:41 - CONCLUSION: 1. Scattered nodules. 2. Widened mediastinum which could be related to adenopathy or aneurysm. 3. Contrasted CT chest recommended. Rey Santacruz MD Chest CT 08/02/16 0000 Signed Impressions: Service Date/Time: Tuesday, August 02, 2016 03:15 - CONCLUSION: 1. Bibasilar atelectasis. 2. No mass, adenopathy or aneurysm. 3. Cirrhotic liver with cholelithiasis. Rey Santacruz MD Objective Remarks GENERAL: Alert, oriented 3, NAD. SKIN: Warm and dry. HEAD: Normocephalic. EYES: No scleral icterus. No injection or drainage. NECK: Supple, trachea midline. No JVD or lymphadenopathy. CARDIOVASCULAR: Regular rate and rhythm without murmurs, gallops, or rubs. RESPIRATORY: Breath sounds equal bilaterally. No accessory muscle use. GASTROINTESTINAL: Abdomen soft, non-tender, nondistended. MUSCULOSKELETAL: No cyanosis, or edema. Status post right hip hemiarthroplasty BACK: Nontender without obvious deformity. No CVA tenderness. Procedures 08/03/2016 - Right hip hemiarthroplasty A/P Problem List: (1) Femoral neck fracture ICD Code: S72.009A Status: Acute (2) Acute alcohol intoxication ICD Code: F10.929 Status: Acute (3) Anxiety ICD Code: F41.9 Status: Acute Assessment and Plan Ms. Jorge is a 61-year-old female with a history of liver cirrhosis who presents to the emergency department on 08/02/2016 after she sustained a right femoral neck fracture following a fall. Patient was drinking prior to this fall. Patient underwent right hip hemiarthroplasty on the day of admission. - Right-sided femoral neck fracture - Continue [place] and morphine for pain. - Milk of magnesia, Dulcolax suppository for bowel regimen. - Alcohol abuse - Continue CIWA protocol - Continue multivitamin, thiamine. - Anxiety - start BuSpar 10 mg every 8 hours. - Liver cirrhosis - no acute exacerbation. Full code. Lovenox. Discharge Plan: Patient wants to go home with home health. Possibly on 08/04/2016 Problem Qualifiers (1) Femoral neck fracture: Qualified Code: S72.001A - Closed fracture of neck of right femur, initial encounter (2) Acute alcohol intoxication: Qualified Code: F10.920 - Acute alcohol intoxication, uncomplicated Mónica Vo DO August 03, 2016 4:27 pm
[2016-08-04] VITALS (8 sets, daily range): BP systolic 118–159; BP diastolic 69–90; PULSE 84–117; RESP 16–18; TEMP 97–98.3; O2SAT 93–98
[2016-08-04] MEDS: busPIRone HCL 10 MG TAB PO SCH ×3 (04:59→21:57)
[2016-08-04] MEDS: ACETAMINOPHEN/HYDROcodone 325 MG/7.5 MG TAB PO PRN ×5 (04:59→21:57)
[2016-08-04] MEDS: THIAMINE INJ 100 MG in SODIUM CHLORIDE 0.9% INJ 100 ML IV SCH (05:00)
[2016-08-04] MEDS: MULTIVITAMIN INJ 10 ML, FOLIC ACID INJ 1 MG in SODIUM CHLORID 0.9% 500 ML INJ 500 ML IV SCH (05:01)
--- NOTE | 2016-08-04 06:34 | PD.ORT.PN ---
Subjective Subjective Remarks POD 2 s/p right hip hemiarthroplasty doing well. pain controlled. no complaints. got out of bed yesterday and states it went well. Objective Vitals Vital Signs Date Time Temp Pulse Resp B/P Pulse Ox O2 Delivery O2 Flow Rate FiO2 08/04/16 06:05 18 08/04/16 04:20 97.6 99 16 118/76 96 08/04/16 00:42 Room Air 08/03/16 23:50 96.7 108 16 137/78 94 08/03/16 21:49 94 21 08/03/16 19:55 98.8 104 17 158/95 94 08/03/16 16:55 112 08/03/16 16:00 99.1 114 20 135/84 92 08/03/16 12:00 98.3 108 20 133/88 92 08/03/16 09:15 Nasal Cannula 4.00 08/03/16 08:00 97.9 97 21 133/94 97 I/O 08/03/16 08/03/16 08/03/16 08/04/16 08/04/16 08/04/16 07:00 15:00 23:00 07:00 15:00 23:00 Intake Total 921 ml 480 ml 740 ml 480 ml Output Total 540 ml 535 ml 25 ml 40 ml Balance 381 ml -55 ml 715 ml 440 ml Intake Oral 600 ml 480 ml 740 ml 480 ml IV Total 321 ml Output Urine Total 500 ml 400 ml Stool Total 75 ml Drainage Total 40 ml 60 ml 25 ml 40 ml # Voids 3 3 7 # Bowel Movements 0 75 0 0 Result Diagram: 08/03/16 0400 08/03/16 0400 Imaging Last 24 hours Impressions Hip and Pelvis X-Ray 08/02/16 0000 Signed Impressions: Service Date/Time: Tuesday, August 02, 2016 01:41 - CONCLUSION: Mildly displaced right femoral neck fracture. Rey Santacruz MD Head CT 08/02/16 0000 Signed Impressions: Service Date/Time: Tuesday, August 02, 2016 03:11 - CONCLUSION: Nonspecific white matter changes. No acute intracranial abnormality. Rey Santacruz MD Chest X-Ray 08/02/16 0000 Signed Impressions: Service Date/Time: Tuesday, August 02, 2016 01:41 - CONCLUSION: 1. Scattered nodules. 2. Widened mediastinum which could be related to adenopathy or aneurysm. 3. Contrasted CT chest recommended. Rey Santacruz MD Chest CT 08/02/16 0000 Signed Impressions: Service Date/Time: Tuesday, August 02, 2016 03:15 - CONCLUSION: 1. Bibasilar atelectasis. 2. No mass, adenopathy or aneurysm. 3. Cirrhotic liver with cholelithiasis. Rey Santacruz MD Objective Remarks RLE: dressings clean and dry. intact. +knee brace. NVI Assessment & Plan Assessment and Plan 1) Right femoral neck fracture s/p hemiarthroplasty - POD 2 WBAT posterior hip precautions knee brace while in bed dressing changes POD 2 CM for rehab placement -plan for DC to rehab tomorrow f/u with Dr Peoples or PA in 2 weeks Moiz Restrepo August 04, 2016 06:34
[2016-08-04] MEDS: RESP: ALBUTEROL 2.5 MG/IPRATROPIUM 0.5 MG NEB (PRN) NEB (08:38)
[2016-08-04] MEDS: SODIUM CHLORIDE 0.9% FLUSH 10 ML FLUSH IV FLUSH SCH ×2 (09:00→21:57)
[2016-08-04] MEDS: ENOXAPARIN SODIUM 30 MG/0.3 ML SYRINGE SQ SCH (09:04)
[2016-08-04] MEDS: CHOLECALCIFEROL (VIT D3) 5000 UNIT CAP PO SCH (09:04)
--- NOTE | 2016-08-04 16:06 | HHI.PR ---
Subjective Remarks Follow-up for right hip fracture following a fall. Patient is currently doing well. She feels sleepy at the time of this interview. Denies any chest pain or shortness of breath, fever or chills. Objective Vitals Vital Signs Date Time Temp Pulse Resp B/P Pulse Ox O2 Delivery O2 Flow Rate FiO2 08/04/16 15:59 98.3 99 18 127/90 95 08/04/16 12:00 97.8 95 18 118/79 94 08/04/16 08:39 94 08/04/16 08:00 98.0 85 18 127/81 94 08/04/16 06:05 18 08/04/16 04:20 97.6 99 16 118/76 96 08/04/16 00:42 Room Air 08/03/16 23:50 96.7 108 16 137/78 94 08/03/16 21:49 94 21 08/03/16 19:55 98.8 104 17 158/95 94 08/03/16 16:55 112 I/O 08/03/16 08/03/16 08/03/16 08/04/16 08/04/16 08/04/16 07:00 15:00 23:00 07:00 15:00 23:00 Intake Total 921 ml 480 ml 740 ml 480 ml 1189 ml Output Total 540 ml 535 ml 25 ml 40 ml Balance 381 ml -55 ml 715 ml 440 ml 1189 ml Intake Oral 600 ml 480 ml 740 ml 480 ml 600 ml IV Total 321 ml 589 ml Output Urine Total 500 ml 400 ml Stool Total 75 ml Drainage Total 40 ml 60 ml 25 ml 40 ml # Voids 3 3 7 3 # Bowel Movements 0 75 0 0 0 Result Diagram: 08/03/16 0400 08/03/16 0400 Objective Remarks GENERAL: Alert, oriented 3, NAD. SKIN: Warm and dry. HEAD: Normocephalic. EYES: No scleral icterus. No injection or drainage. NECK: Supple, trachea midline. No JVD or lymphadenopathy. CARDIOVASCULAR: Regular rate and rhythm without murmurs, gallops, or rubs. RESPIRATORY: Breath sounds equal bilaterally. No accessory muscle use. GASTROINTESTINAL: Abdomen soft, non-tender, nondistended. MUSCULOSKELETAL: No cyanosis, or edema. Status post right hip hemiarthroplasty BACK: Nontender without obvious deformity. No CVA tenderness. Procedures 08/03/2016 - Right hip hemiarthroplasty A/P Problem List: (1) Femoral neck fracture ICD Code: S72.009A Status: Acute (2) Acute alcohol intoxication ICD Code: F10.929 Status: Acute (3) Anxiety ICD Code: F41.9 Status: Acute Assessment and Plan Ms. Jorge is a 61-year-old female with a history of liver cirrhosis who presents to the emergency department on 08/02/2016 after she sustained a right femoral neck fracture following a fall. Patient was drinking prior to this fall. Patient underwent right hip hemiarthroplasty on the day of admission. - Right-sided femoral neck fracture - Continue [place] and morphine for pain. - Milk of magnesia, Dulcolax suppository for bowel regimen. - Alcohol abuse - Continue CIWA protocol - Continue multivitamin, thiamine. - Anxiety - BuSpar 10 mg every 8 hours. - Liver cirrhosis - no acute exacerbation. Full code. Lovenox. Discharge Plan: Likely discharge to SNF on 08/04/2016 Problem Qualifiers (1) Femoral neck fracture: Qualified Code: S72.001A - Closed fracture of neck of right femur, initial encounter (2) Acute alcohol intoxication: Qualified Code: F10.920 - Acute alcohol intoxication, uncomplicated Mónica Vo DO August 04, 2016 4:06 pm
[2016-08-05 03:19] VITALS: BP 122/80; PULSE 92; RESP 18; TEMP 98; O2SAT 93
[2016-08-05] MEDS: busPIRone HCL 10 MG TAB PO SCH ×2 (05:57→14:30)
[2016-08-05] MEDS: ACETAMINOPHEN/HYDROcodone 325 MG/7.5 MG TAB PO PRN (05:57)
[2016-08-05] MEDS: MULTIVITAMIN INJ 10 ML, FOLIC ACID INJ 1 MG in SODIUM CHLORID 0.9% 500 ML INJ 500 ML IV SCH (05:58)
[2016-08-05] MEDS: RESP: ALBUTEROL 2.5 MG/IPRATROPIUM 0.5 MG NEB (PRN) NEB (06:20)
[2016-08-05 06:21] VITALS: O2SAT 96
--- NOTE | 2016-08-05 07:14 | PD.ORT.PN ---
Subjective Subjective Remarks Resting comfortably. Still having difficulty ambulating. Plan for discharge to rehabilitation today Objective Vitals Vital Signs Date Time Temp Pulse Resp B/P Pulse Ox O2 Delivery O2 Flow Rate FiO2 08/05/16 06:21 96 Nasal Cannula 21 08/05/16 03:19 98.0 92 18 122/80 93 08/04/16 23:47 97.4 102 17 159/85 94 08/04/16 20:40 97.5 110 18 137/86 93 08/04/16 20:32 117 08/04/16 15:59 98.3 99 18 127/90 95 08/04/16 12:00 97.8 95 18 118/79 94 08/04/16 08:39 94 08/04/16 08:00 98.0 85 18 127/81 94 I/O 08/04/16 08/04/16 08/04/16 08/05/16 08/05/16 08/05/16 07:00 15:00 23:00 07:00 15:00 23:00 Intake Total 480 ml 1189 ml 720 ml 360 ml Output Total 40 ml Balance 440 ml 1189 ml 720 ml 360 ml Intake Oral 480 ml 600 ml 720 ml 360 ml IV Total 589 ml Drainage Total 40 ml # Voids 7 3 5 3 # Bowel Movements 0 0 0 0 Result Diagram: 08/03/16 0400 08/03/16 0400 Imaging Last 24 hours Impressions Hip and Pelvis X-Ray 08/02/16 0000 Signed Impressions: Service Date/Time: Tuesday, August 02, 2016 01:41 - CONCLUSION: Mildly displaced right femoral neck fracture. Rey Santacruz MD Head CT 08/02/16 0000 Signed Impressions: Service Date/Time: Tuesday, August 02, 2016 03:11 - CONCLUSION: Nonspecific white matter changes. No acute intracranial abnormality. Rey Santacruz MD Chest X-Ray 08/02/16 0000 Signed Impressions: Service Date/Time: Tuesday, August 02, 2016 01:41 - CONCLUSION: 1. Scattered nodules. 2. Widened mediastinum which could be related to adenopathy or aneurysm. 3. Contrasted CT chest recommended. Rey Santacruz MD Chest CT 08/02/16 0000 Signed Impressions: Service Date/Time: Tuesday, August 02, 2016 03:15 - CONCLUSION: 1. Bibasilar atelectasis. 2. No mass, adenopathy or aneurysm. 3. Cirrhotic liver with cholelithiasis. Rey Santacruz MD Objective Remarks RLE: dressings clean and mild drainage. intact. +knee brace reapplied. NVI Assessment & Plan Assessment and Plan 1) Right femoral neck fracture s/p hemiarthroplasty - POD 3 WBAT posterior hip precautions knee brace while in bed Daily dressing changes Xeroform over incision CM for rehab placement DC to rehabilitation when bed available f/u with Dr Peoples or PA in 2 weeks Camilo Brunner Jr. August 05, 2016 07:14
[2016-08-05 08:00] VITALS: BP 132/84; PULSE 97; RESP 16; TEMP 97.5; O2SAT 92
[2016-08-05] MEDS: ENOXAPARIN SODIUM 30 MG/0.3 ML SYRINGE SQ SCH (08:02)
[2016-08-05] MEDS: CHOLECALCIFEROL (VIT D3) 5000 UNIT CAP PO SCH (08:03)
[2016-08-05] MEDS: SODIUM CHLORIDE 0.9% FLUSH 10 ML FLUSH IV FLUSH SCH (08:03)
[2016-08-05] MEDS ORDERED: THIAMINE HCL 100 MG TAB PO SCH (09:00)
[2016-08-05] MEDS ORDERED: HYDR-3288 PO (09:02)
[2016-08-05] MEDS ORDERED: ZYRT10CA PO (09:22)
[2016-08-05] MEDS ORDERED: FLUT1SPR5 EACH NARE (09:22)
--- NOTE | 2016-08-05 09:24 | HHI.DS ---
Discharge Summary Admission Date August 02, 2016 at 5:22 am Discharge Date: August 05, 2016 Admitting Diagnosis femoral neck fracture (1) Femoral neck fracture ICD Code: S72.009A Diagnosis: Principal (2) Acute alcohol intoxication ICD Code: F10.929 (3) Anxiety ICD Code: F41.9 Procedures 08/03/2016 - Right hip hemiarthroplasty Brief History - From Admission Ms. Jorge is a 61-year-old female with a history of liver cirrhosis who presents to the emergency department on 08/02/2016 after a mechanical fall causing her to have immediate right hip pain. Patient was drinking alcohol in the evening and she fell from her stationary car. Imaging studies indicated mildly displaced right femoral neck fracture. Orthopedic surgery was consulted. Patient underwent right hip hemiarthroplasty. At the time of this interview, patient denies any chest pain, shortness of breath, fever or chills. She denies any changes in her bowel or bladder habits. She reports some anxiety. Denies any weight loss. CBC/BMP: 08/03/16 0400 08/03/16 0400 Significant Findings Laboratory Tests Test 08/03/16 04:00 Red Blood Count 3.11 MIL/MM3 (4.00-5.30) Hemoglobin 10.3 GM/DL (11.6-15.3) Hematocrit 30.2 % (35.0-46.0) Platelet Count 47 TH/MM3 (150-450) Neutrophils (%) (Auto) 71.6 % (16.0-70.0) Monocytes (%) (Auto) 14.2 % (0.0-8.0) Monocytes # (Auto) 1.2 TH/MM3 (0-0.9) Platelet Estimate LOW (NORMAL) Random Glucose 111 MG/DL (74-106) Calcium Level 7.6 MG/DL (8.5-10.1) Total Bilirubin 1.6 MG/DL (0.2-1.0) Aspartate Amino Transf 51 U/L (15-37) (AST/SGOT) Total Protein 5.3 GM/DL (6.4-8.2) Albumin 2.5 GM/DL (3.4-5.0) Imaging Last Impressions Hip and Pelvis X-Ray 08/02/16 0854 Signed Impressions: Service Date/Time: Tuesday, August 02, 2016 09:21 - CONCLUSION: Expected postoperative change status post right hip arthroplasty. Camilo Norman MD Head CT 08/02/16 0000 Signed Impressions: Service Date/Time: Tuesday, August 02, 2016 03:11 - CONCLUSION: Nonspecific white matter changes. No acute intracranial abnormality. Rey Santacruz MD Chest X-Ray 08/02/16 0000 Signed Impressions: Service Date/Time: Tuesday, August 02, 2016 01:41 - CONCLUSION: 1. Scattered nodules. 2. Widened mediastinum which could be related to adenopathy or aneurysm. 3. Contrasted CT chest recommended. Rey Santacruz MD Chest CT 08/02/16 0000 Signed Impressions: Service Date/Time: Tuesday, August 02, 2016 03:15 - CONCLUSION: 1. Bibasilar atelectasis. 2. No mass, adenopathy or aneurysm. 3. Cirrhotic liver with cholelithiasis. Rey Santacruz MD PE at Discharge GENERAL: Alert, oriented 3, NAD. SKIN: Warm and dry. HEAD: Normocephalic. EYES: No scleral icterus. No injection or drainage. NECK: Supple, trachea midline. No JVD or lymphadenopathy. CARDIOVASCULAR: Regular rate and rhythm without murmurs, gallops, or rubs. RESPIRATORY: Breath sounds equal bilaterally. No accessory muscle use. GASTROINTESTINAL: Abdomen soft, non-tender, nondistended. MUSCULOSKELETAL: No cyanosis, or edema. Status post right hip hemiarthroplasty BACK: Nontender without obvious deformity. No CVA tenderness. Pt update on day of discharge Patient is doing well. No acute concerns. Denies any fever, chills. Hospital Course Ms. Jorge is a 61-year-old female with a history of liver cirrhosis who presents to the emergency department on 08/02/2016 after she sustained a right femoral neck fracture following a fall. Patient was drinking prior to this fall. Patient underwent right hip hemiarthroplasty on the day of admission. - Right-sided femoral neck fracture - Continue [place] for pain on discharge. - per ortho recs: WBAT posterior hip precautions knee brace while in bed Daily dressing changes Xeroform over incision - Alcohol abuse - Continue CIWA protocol while in the hospital. - Continue multivitamin, thiamine. - Anxiety - BuSpar 10 mg every 8 hours. - Liver cirrhosis - no acute exacerbation. Pt Condition on Discharge: Good Discharge Disposition: Discharge to SNF Discharge Time: > 30 minutes Discharge Instructions DIET: Follow Instructions for: Diabetic Diet Activities you can perform: Regular-No Restrictions, See Additionl Instruction Other Activity Instructions: WBAT posterior hip precautions knee brace while in bed Follow up Referrals: Orthopedics - 08/16/16 @ [facility] with Shekhar Peoples MD New Medications: Calcium Carbonate-Vitamin D (Calcium 600+D 200) 600-200 Mg-Unit Tab 1 TAB PO BID Nutritional Supplement Days 30 Ref 0 TAB Cetirizine (Zyrtec Allergy) 10 Mg Cap 10 MG PO DAILY Allergies #30 Ref 0 CAP Cholecalciferol (Vitamin D3) 2,000 Unit Cap 2000 UNITS PO DAILY Nutritional Supplement #56 Ref 0 CAP Ergocalciferol (Ergocalciferol) 50,000 Unit Cap 54734 UNITS PO Q7D Nutritional Supplement #56 CAP Fluticasone Nasal [place] (Flonase Nasal [place]) 50 Mcg/Act [place] 50 MCG EACH NARE BID Allergies #1 Ref 0 BOTTLE Hydrocodone-Acetaminophen ([place]) 7.5-325 mg Tab 1 TAB PO Q4H PRN PAIN #40 Ref 0 TAB Walker/Adult/Folding (Walker/Adult/Folding) 1 Mis Mis 1 EA .ROUTE DIRECTED #1 Ref 0 EA Mónica Vo DO August 05, 2016 09:24
[2016-08-05] MEDS ORDERED: VITA100T2 PO (09:26)
[2016-08-05] MEDS ORDERED: BUSP10TA PO (09:26)
[2016-08-05] MEDS ORDERED: FOLI1TAB4 PO (09:26)
[2016-08-05] MEDS ORDERED: XARE10TA PO (09:30)
[2016-08-05] MEDS ORDERED: LACTULOSE SYRUP 20 GM/30 ML CUP PO PRN (09:30)
[2016-08-05] MEDS ORDERED: LACT10SO PO (09:32)
[2016-08-05 12:00] VITALS: BP 164/94; PULSE 106; RESP 16; TEMP 98.3; O2SAT 93
== END 2016-08-05 15:25 | DRG 470 ==
LOC: EDBD → NEPE 00:44 → NEDA 05:22 → N06A 06:07
PROVIDERS: ADMIT Hospitalist; ATTEND Hospitalist
PROC: 0SRR0JA Replacement of Right Hip Joint, Femoral Surface with Synthetic Substitute, Uncemented, Open Approach (ICD-10-PCS; principal; 2016-08-02 07:49)
DX: S72.001A Fracture of unspecified part of neck of right femur, initial encounter for closed fracture (principal); K74.60 Unspecified cirrhosis of liver; M32.9 Systemic lupus erythematosus, unspecified; J98.11 Atelectasis; K72.90 Hepatic failure, unspecified without coma; I10 Essential (primary) hypertension; K80.20 Calculus of gallbladder without cholecystitis without obstruction; M06.9 Rheumatoid arthritis, unspecified; R09.02 Hypoxemia; F17.210 Nicotine dependence, cigarettes, uncomplicated; F10.120 Alcohol abuse with intoxication, uncomplicated; F41.9 Anxiety disorder, unspecified; W19.XXXA Unspecified fall, initial encounter; Y92.9 Unspecified place or not applicable
CPT/HCPCS: 70450; 71010; 71260; 73502; 80053; 80307; 82306; 82948; 85025; 85610; 85730; 94640; 94664; 96374; 96375; C1776; J0690; J1170; J1580; J1650; J2175; J2250; J2310; J2370; J2405; J2710; J3010; J3370; J3411; J7040; J7050; J7613; L1830; Q9967

== ENCOUNTER 2016-08-14 11:04 | Observation (INO) | payer MEDICARE, OTHER ==
[~2016-08-14] VITALS: Ht 170.2 cm; Wt 70.5 kg
[2016-08-14] VITALS (8 sets, daily range): BP systolic 86–107; BP diastolic 57–76; PULSE 57–72; RESP 16–18; TEMP 96.6–97.6; O2SAT 96–100
[~2016-08-14 11:04] MED LIST: BUSP10TA PO; CALCTAB19 PO; ERGO1CAP30 PO; FLUT1SPR5 EACH NARE; FOLI1TAB4 PO; HYDR-3288 PO; LACT10SO PO; VITA100T2 PO; VITA2000 PO; WALKER/ADULT/FO1 MIS; XARE10TA PO; ZYRT10CA PO
--- NOTE | 2016-08-14 11:36 | PD ---
HPI Chief Complaint: Cardiac Complaint Time Seen by Provider: 11:20 Travel History International Travel<30 days: No Contact w/Intl Traveler<30days: No Traveled to known affect area: No History of Present Illness HPI This is a 61-year-old female with history of cirrhosis who presents for evaluation of generalized weakness, lower extremity edema, brain "fogginess." The patient was recently admitted here for right-sided femoral neck fracture on August 02. She underwent right hip hemiarthroplasty and she was discharged on to [facility]. Patient reports that for the past few weeks she has been having worsening lower extremity edema bilaterally, now over the past few days been feeling generalized weakness, "fogginess" of the brain which she attributes to her cirrhosis, generalized pruritic skin. She reports that she has been falling asleep on the toilet. She lives alone, has had difficulty with normal activities of daily living at home. She saw her primary care physician today and was sent here for further evaluation. She is denying chest pain, shortness of breath, abdominal pain, nausea or vomiting, fevers. She has no other complaints. PFSH Past Medical History Hx Anticoagulant Therapy: Yes Arthritis: Yes Anxiety: Yes Depression: Yes Cancer: No Cardiovascular Problems: Yes (HTN) Cirrhosis: Yes Endocrine: No Genitourinary: No Hepatitis: Yes (C) Hypertension: Yes Immune Disorder: No Musculoskeletal: Yes Neurologic: No Reproductive: No Respiratory: Yes Past Surgical History Other Surgery: Yes Social History Alcohol Use: Yes (OCCATIONALLY) Tobacco Use: Yes (04/02 PPD) Substance Use: No Allergies-Medications (Allergen,Severity, Reaction): Coded Allergies: Codeine (Verified Allergy, Unknown, ITCHING, 08/14/16) Sulfa (Verified Allergy, Unknown, 08/02/16) Reported Meds & Prescriptions Reported Meds & Active Scripts Active Xarelto (Rivaroxaban) 10 Mg Tab 10 Mg PO DAILY [place] (Hydrocodone-Acetaminophen) 7.5-325 mg Tab 1 Tab PO Q4H PRN Reported Claritin (Loratadine) 10 Mg Tab 10 Mg PO DAILY Mephyton (Phytonadione) 5 Mg Tab 5 Mg PO DAILY Acidophilus (Probiotic Product) 1 Cap Cap 1 Cap PO DAILY Turmeric Curcumin (Misc Natural Products) 1 Cap 1 Cap PO DAILY Tramadol (Tramadol HCl) 50 Mg Tab 50 Mg PO Q4H PRN Ibuprofen 800 Mg Tab 800 Mg PO TID Amlodipine (Amlodipine Besylate) 5 Mg Tab 5 Mg PO HS PRN Fluoxetine HCl (Fluoxetine HCl (Pmdd)) 10 Mg Tab 20 Mg PO DAILY Nadolol 20 Mg Tab 20 Mg PO DAILY Sumatriptan (Sumatriptan Succinate) 100 Mg Tab 100 Mg PO BID PRN If a satisfactory response has not been obtained in 2 hours, a second dose may be administered Trazodone (Trazodone HCl) 50 Mg Tab 50 Mg PO HS Xifaxan (Rifaximin) 550 Mg Tab 550 Mg PO Q12HR Kristalose Packet (Lactulose) 20 Gm Pkt 20 Gm PO BID Buspirone (Buspirone HCl) 10 Mg Tab 10 Mg PO BID Papaya Enzyme (Digestive Enzymes) 1 Tab Tab 1 Tab PO DAILY Echinacea 400 Mg Cap 400 Mg PO DAILY [id number]-D3 (Multiple Minerals W/ Vitamins) 1 Tab Tab 1 Tab PO DAILY Vitamin B-12 (Cyanocobalamin) 1,000 Mcg Tab 1,000 Mcg PO DAILY Vitamin C (Ascorbic Acid) 500 Mg Chew 500 Mg PO DAILY Vitamin B Complex (B-Complex Vitamins) 1 Tab 1 Tab PO DAILY Multi Vitamin (Multiple Vitamin) 1 Tab Tab 1 Tab PO DAILY Flonase Nasal [place] (Fluticasone Nasal [place]) 50 Mcg/Act [place] 1 Spr EACH NARE DAILY Tizanidine (Tizanidine HCl) 2 Mg Tab 2 Mg PO DAILY Omeprazole 40 Mg Cap 40 Mg PO BID Review of Systems Except as stated in HPI: all other systems reviewed are Neg Physical Exam Narrative GENERAL: Well-developed well-nourished female in no acute distress SKIN: Warm and dry. Examination of the right hip reveals well approximated surgical wounds with kyara, Steri-Strips in place. There is a little bit of serous drainage. There is some surrounding ecchymosis. There is no wound dehiscence. HEAD: Atraumatic. Normocephalic. EYES: Pupils equal and round. No scleral icterus. No injection or drainage. ENT: No nasal bleeding or discharge. Mucous membranes pink and moist. NECK: Trachea midline. No JVD. CARDIOVASCULAR: Regular rate and rhythm. No murmur appreciated. RESPIRATORY: No accessory muscle use. Clear to auscultation. Breath sounds equal bilaterally. GASTROINTESTINAL: Abdomen soft, mildly distended without tenderness or guarding. No CVA tenderness. MUSCULOSKELETAL: No obvious deformities. 3+ lower extremity pitting edema bilaterally. Generalized tenderness to palpation to the lower extremities. 2+ dorsalis pedis pulse bilaterally. NEUROLOGICAL: Awake and alert. No obvious cranial nerve deficits. Motor grossly within normal limits. Normal speech. Data Data Last Documented VS Vital Signs Date Time Temp Pulse Resp B/P Pulse Ox O2 Delivery O2 Flow Rate FiO2 08/14/16 11:34 Room Air 08/14/16 11:21 57 18 100/65 97 08/14/16 11:05 97.6 Orders Electrocardiogram (08/14/16 11:18) Ammonia (08/14/16 11:18) Complete Blood Count With Diff (08/14/16 11:18) Comprehensive Metabolic Panel (08/14/16 11:18) Urinalysis - C+S If Indicated (08/14/16 11:18) Chest, Single Ap (08/14/16 11:18) Ecg Monitoring (08/14/16 11:18) Iv Access Insert/Monitor (08/14/16 11:18) Oximetry (08/14/16 11:18) Us Leg Venous Doppler Bilat (08/14/16 11:18) Alcohol (Ethanol) (08/14/16 11:22) Act Partial Throm Time (Ptt) (08/14/16 11:30) Prothrombin Time / Inr (Pt) (08/14/16 11:30) Potassium Chlor 10 Meq Premix (Kcl 10 Me (08/14/16 12:30) Potassium Chloride (Kcl) (08/14/16 12:30) Urine Culture (08/14/16 12:15) Place In Observation (08/14/16 ) Vital Signs (Adult) Q4H (08/14/16 13:10) Activity Oob With Assistance (08/14/16 13:10) Intake + Output SARAH.QSHIFT (08/14/16 13:10) Diet Regular Basic (08/14/16 Lunch) Sodium Chloride 0.9% Flush (Ns Flush) (08/14/16 13:15) Sodium Chloride 0.9% Flush (Ns Flush) (08/14/16 21:00) Acetaminophen (Tylenol) (08/14/16 13:15) Ondansetron Inj (Zofran Inj) (08/14/16 13:15) Prochlorperazine Supp (Compazine Supp) (08/14/16 13:15) Magnesium Hydroxide Liq (Milk Of Magnesi (08/14/16 13:15) Comprehensive Metabolic Panel (08/15/16 06:00) Complete Blood Count With Diff (08/15/16 06:00) Resp Oxygen Antoine C Titrat 1-4 L (08/14/16 ) Pt Request For Service (08/14/16 13:10) Enoxaparin Inj (Lovenox Inj) (08/14/16 14:00) Scd Bilateral/Knee High SARAH.BID (08/14/16 13:10) Brady Bilateral/Knee High SARAH.QSHIFT (08/14/16 13:10) Admit Order (Ed Use Only) (08/14/16 13:10) Labs Laboratory Tests Test 08/14/16 08/14/16 11:30 12:15 White Blood Count 7.8 TH/MM3 Red Blood Count 3.16 MIL/MM3 Hemoglobin 10.0 GM/DL Hematocrit 30.3 % Mean Corpuscular Volume 95.7 FL Mean Corpuscular Hemoglobin 31.6 PG Mean Corpuscular Hemoglobin 33.0 % Concent Red Cell Distribution Width 16.2 % Platelet Count 87 TH/MM3 Mean Platelet Volume 9.1 FL Neutrophils (%) (Auto) 71.4 % Lymphocytes (%) (Auto) 16.3 % Monocytes (%) (Auto) 11.5 % Eosinophils (%) (Auto) 0.3 % Basophils (%) (Auto) 0.5 % Neutrophils # (Auto) 5.6 TH/MM3 Lymphocytes # (Auto) 1.3 TH/MM3 Monocytes # (Auto) 0.9 TH/MM3 Eosinophils # (Auto) 0.0 TH/MM3 Basophils # (Auto) 0.0 TH/MM3 CBC Comment AUTO DIFF Differential Comment AUTO DIFF CONFIRMED Platelet Estimate LOW Platelet Morphology Comment NORMAL Polychromasia 2.0 % Keratocytes OCC Prothrombin Time 14.5 SEC Prothromb Time International 1.3 RATIO Ratio Activated Partial 32.0 SEC Thromboplast Time Sodium Level 138 MEQ/L Potassium Level 2.7 MEQ/L Chloride Level 102 MEQ/L Carbon Dioxide Level 28.4 MEQ/L Anion Gap 8 MEQ/L Blood Urea Nitrogen 10 MG/DL Creatinine 0.54 MG/DL Estimat Glomerular Filtration 115 ML/MIN Rate Random Glucose 94 MG/DL Calcium Level 8.0 MG/DL Total Bilirubin 2.0 MG/DL Aspartate Amino Transf 40 U/L (AST/SGOT) Alanine Aminotransferase 30 U/L (ALT/SGPT) Alkaline Phosphatase 83 U/L Ammonia 49 MCMOL/L Total Protein 5.2 GM/DL Albumin 2.3 GM/DL Ethyl Alcohol Level 8 MG/DL Urine Color YELLOW Urine Turbidity CLEAR Urine pH 6.0 Urine Specific [place] 1.013 Urine Protein NEG mg/dL Urine Glucose (UA) NEG mg/dL Urine Ketones NEG mg/dL Urine Occult Blood NEG Urine Nitrite NEG Urine Bilirubin NEG Urine Urobilinogen LESS THAN 2.0 MG/DL Urine Leukocyte Esterase TRACE Urine RBC LESS THAN 1 /hpf Urine WBC 1 /hpf Urine Squamous Epithelial 5 /hpf Cells Urine Bacteria RARE /hpf Urine Hyaline Casts 3 /lpf Microscopic Urinalysis Comment CATH-CULTURE IND MDM Medical Decision Making Medical Screen Exam Complete: Yes Emergency Medical Condition: Yes Medical Record Reviewed: Yes Differential Diagnosis Lower extremity edema secondary to hypoalbuminemia, bilateral DVT, dependent edema, hepatic encephalopathy, hydration, electrolyte abnormality Narrative Course 61-year-old female with history of cirrhosis, recent right femoral neck fracture , discharged from halfway facility yesterday. She presents with generalized weakness, worsening lower extremity edema and pain, hypertension, "foggy memory" and difficulties performing activities of daily living at home. Plan is for basic lab work, 12-lead EKG, ECG monitoring and pulse oximetry. Initially she was mildly hypotensive when she arrived to the ED, she does note that she took her normal morning dose of antihypertensive medication this morning. Laboratory is been reviewed. Hypokalemic. Elevated ammonia level. 10 mEq IV potassium, 40 mEq oral potassium have been given. The patient will be admitted for further evaluation and treatment. Discussed with Dr. Eng who is agreeable. Diagnosis Primary Impression: Weakness Additional Impressions: Hypokalemia Lower extremity edema Hepatic encephalopathy Admitting Information Admitting Physician Requests: Admit Ernesto Quinn August 14, 2016 11:36
--- NOTE | 2016-08-14 11:47 | PD ---
Physical Exam Date Seen by Provider: August 14, 2016 Time Seen by Provider: 11:45 Narrative I patient with Ernesto Quinn PA-C. The patient presents with complaints of generalized weakness, bilateral lower extremity edema, and difficulty and bleeding. The patient was treated for a right femoral neck fracture on August 02. She was then transferred to [facility] for rehabilitation on 05 August. She is discharged home yesterday. She presented to her primary care physician's office today with the above complaints. They found her blood pressure to be low. They also found that she had 3+ pitting edema to her bilateral lower extremities. She denies any fevers, chills. She denies any shortness of breath. She does report that she is currently on the transplant list for her liver. She has a history of cirrhosis secondary to alcohol as well as hepatitis C. The patient lives alone and states it's very difficult. Home because she can ambulate to the toilet secondary to her swelling. On examination, she is noted to have 3+ pitting edema. She has edema around her surgical incision site. There is some serous drainage noted from one of the staple areas. There is no evidence of cellulitis. Data Data Last Documented VS Vital Signs Date Time Temp Pulse Resp B/P Pulse Ox O2 Delivery O2 Flow Rate FiO2 08/14/16 11:34 Room Air 08/14/16 11:21 57 18 100/65 97 08/14/16 11:05 97.6 Orders Electrocardiogram (08/14/16 11:18) Ammonia (08/14/16 11:18) Complete Blood Count With Diff (08/14/16 11:18) Comprehensive Metabolic Panel (08/14/16 11:18) Urinalysis - C+S If Indicated (08/14/16 11:18) Chest, Single Ap (08/14/16 11:18) Ecg Monitoring (08/14/16 11:18) Iv Access Insert/Monitor (08/14/16 11:18) Oximetry (08/14/16 11:18) Us Leg Venous Doppler Bilat (08/14/16 11:18) Alcohol (Ethanol) (08/14/16 11:22) Act Partial Throm Time (Ptt) (08/14/16 11:30) Prothrombin Time / Inr (Pt) (08/14/16 11:30) Potassium Chlor 10 Meq Premix (Kcl 10 Me (08/14/16 12:30) Potassium Chloride (Kcl) (08/14/16 12:30) Urine Culture (08/14/16 12:15) Labs Laboratory Tests Test 08/14/16 08/14/16 11:30 12:15 White Blood Count 7.8 TH/MM3 Red Blood Count 3.16 MIL/MM3 Hemoglobin 10.0 GM/DL Hematocrit 30.3 % Mean Corpuscular Volume 95.7 FL Mean Corpuscular Hemoglobin 31.6 PG Mean Corpuscular Hemoglobin 33.0 % Concent Red Cell Distribution Width 16.2 % Platelet Count 87 TH/MM3 Mean Platelet Volume 9.1 FL Neutrophils (%) (Auto) 71.4 % Lymphocytes (%) (Auto) 16.3 % Monocytes (%) (Auto) 11.5 % Eosinophils (%) (Auto) 0.3 % Basophils (%) (Auto) 0.5 % Neutrophils # (Auto) 5.6 TH/MM3 Lymphocytes # (Auto) 1.3 TH/MM3 Monocytes # (Auto) 0.9 TH/MM3 Eosinophils # (Auto) 0.0 TH/MM3 Basophils # (Auto) 0.0 TH/MM3 CBC Comment AUTO DIFF Differential Comment AUTO DIFF CONFIRMED Platelet Estimate LOW Platelet Morphology Comment NORMAL Polychromasia 2.0 % Keratocytes OCC Prothrombin Time 14.5 SEC Prothromb Time International 1.3 RATIO Ratio Activated Partial 32.0 SEC Thromboplast Time Sodium Level 138 MEQ/L Potassium Level 2.7 MEQ/L Chloride Level 102 MEQ/L Carbon Dioxide Level 28.4 MEQ/L Anion Gap 8 MEQ/L Blood Urea Nitrogen 10 MG/DL Creatinine 0.54 MG/DL Estimat Glomerular Filtration 115 ML/MIN Rate Random Glucose 94 MG/DL Calcium Level 8.0 MG/DL Total Bilirubin 2.0 MG/DL Aspartate Amino Transf 40 U/L (AST/SGOT) Alanine Aminotransferase 30 U/L (ALT/SGPT) Alkaline Phosphatase 83 U/L Ammonia 49 MCMOL/L Total Protein 5.2 GM/DL Albumin 2.3 GM/DL Ethyl Alcohol Level 8 MG/DL Urine Color YELLOW Urine Turbidity CLEAR Urine pH 6.0 Urine Specific [place] 1.013 Urine Protein NEG mg/dL Urine Glucose (UA) NEG mg/dL Urine Ketones NEG mg/dL Urine Occult Blood NEG Urine Nitrite NEG Urine Bilirubin NEG Urine Urobilinogen LESS THAN 2.0 MG/DL Urine Leukocyte Esterase TRACE Urine RBC LESS THAN 1 /hpf Urine WBC 1 /hpf Urine Squamous Epithelial 5 /hpf Cells Urine Bacteria RARE /hpf Urine Hyaline Casts 3 /lpf Microscopic Urinalysis Comment CATH-CULTURE IND MDM Medical Record Reviewed: Yes Supervised Visit with SAURABH: Yes Differential Diagnosis Anasarca versus DVT versus wound infection versus worsening cirrhosis versus hyperammonemia Narrative Course 61-year-old female who had a recent right femoral neck fracture with repair. Patient was in rehabilitation [facility] yesterday. She presented to her PCP today who sent her here for admission. The patient has worsening swelling of her bilateral lower extremities including her upper bilateral lower extremity is. There is tense skin around her surgical staple site. She has no evidence of cellulitis however is noted to be hypokalemic with a K of 2.7. She's been given by mouth and I V replacement here in the emergency department. Given her diffuse swelling and the strain on her surgical site, I feel it is in her best interest to be admitted and diuresed. Unfortunate, her low pressure is extremely low and barely at 100 systolic. [facility] [place] Given the fact that we are busy and full at the main hospital, I feel we can transfer her to [place] as I do not think she needs any surgical intervention. Diagnosis Primary Impression: Anasarca Additional Impressions: Hypokalemia recent right hip fracture Weakness History of cirrhosis of liver history of cirrhosis Yariel Montes MD August 14, 2016 11:47
--- NOTE | 2016-08-14 11:48 | RADRPT ---
EXAM DATE/TIME: 08/14/2016 11:16 [facility] COMPARISON: CHEST SINGLE AP, August 02, 2016, 1:41. INDICATIONS : Short of breath, severe leg swelling, fever. MEDICAL HISTORY : Osteoporosis SURGICAL HISTORY : Total right hip 07/30/2016 ENCOUNTER: Initial ACUITY: 3 days PAIN SCORE: 10/10 LOCATION: Bilateral chest FINDINGS: A single view of the chest demonstrates the lungs to be symmetrically aerated without evidence of mas s, infiltrate or effusion. The cardiomediastinal contours are unremarkable. Osseous structures are intact. CONCLUSION: Normal examination. Prieto Garcia MD on August 14, 2016 at 11:45 Board Certified Radiologist. This report was verified electronically.
[2016-08-14 11:50] LABS: AUTOMATED NEUTROPHIL # 5.6 TH/MM3 (1.8-7.7); BASOPHIL % 0.5 % (0.0-2.0); EOSINOPHIL % 0.3 % (0.0-4.0); HEMATOCRIT 30.3 % (35.0-46.0); LYMPH % 16.3 % (9.0-44.0); LYMPHOCYTE # 1.3 TH/MM3 (1.0-4.8); MEAN CELL VOLUME 95.7 FL (80.0-100.0); MEAN CORPUSCULAR HEMOGLOBIN 31.6 PG (27.0-34.0); MONO % 11.5 % (0.0-8.0); NEUT % 71.4 % (16.0-70.0); PLATELET COUNT 87 TH/MM3 (150-450); RED BLOOD COUNT 3.16 MIL/MM3 (4.00-5.30); RED CELL DISTRIBUTION WIDTH 16.2 % (11.6-17.2); WHITE BLOOD COUNT 7.8 TH/MM3 (4.0-11.0)
[2016-08-14 11:53] LABS: HEMO FLAGS AUTO DIFF
[2016-08-14] MEDS ORDERED: MULT-135 PO (11:55)
[2016-08-14] MEDS ORDERED: PROB1CAP12 PO (11:55)
[2016-08-14] MEDS ORDERED: KRIS20PA4 PO (11:55)
[2016-08-14] MEDS ORDERED: SUMA100T2 PO (11:55)
[2016-08-14] MEDS ORDERED: VITA500C9 PO (11:55)
[2016-08-14] MEDS ORDERED: XIFA550T4 PO (11:55)
[2016-08-14] MEDS ORDERED: MULT-118 PO (11:55)
[2016-08-14] MEDS ORDERED: TRAM50TA PO (11:55)
[2016-08-14] MEDS ORDERED: FLUT1SPR5 EACH NARE (11:55)
[2016-08-14] MEDS ORDERED: TURMCAP PO (11:55)
[2016-08-14] MEDS ORDERED: FLUO1TAB15 PO (11:55)
[2016-08-14] MEDS ORDERED: IBUP800T23 PO (11:55)
[2016-08-14] MEDS ORDERED: PAPATAB PO (11:55)
[2016-08-14] MEDS ORDERED: VITA10002 PO (11:55)
[2016-08-14] MEDS ORDERED: OMEP40CA2 PO (11:55)
[2016-08-14] MEDS ORDERED: ECHI400C2 PO (11:55)
[2016-08-14] MEDS ORDERED: NADO20TA PO (11:55)
[2016-08-14] MEDS ORDERED: VITATAB11 PO (11:55)
[2016-08-14] MEDS ORDERED: PHYT5TAB2 PO (11:55)
[2016-08-14] MEDS ORDERED: TRAZ50TA12 PO (11:55)
[2016-08-14] MEDS ORDERED: AMLO5TAB2 PO (11:55)
[2016-08-14] MEDS ORDERED: LORA-361 PO (11:55)
[2016-08-14] MEDS ORDERED: TIZA2TAB PO (11:55)
[2016-08-14] MEDS ORDERED: BUSP10TA PO (11:55)
[2016-08-14 12:05] LABS: INTERNATIONAL NORMALIZED RATIO 1.3 RATIO; PROTHROMBIN TIME - PATIENT 14.5 SEC (9.8-11.6)
[2016-08-14 12:08] LABS: ALT (GPT) 30 U/L (10-53); ANION GAP 8 MEQ/L (5-15); AST (GOT) 40 U/L (15-37); BICARBONATE 28.4 MEQ/L (21.0-32.0); BLOOD UREA NITROGEN 10 MG/DL (7-18); CHLORIDE 102 MEQ/L (98-107); GLOMERULAR FILTRATION RATE 115 ML/MIN (>89); SODIUM (NA) 138 MEQ/L (136-145)
[2016-08-14 12:10] LABS: ALKALINE PHOSPHATASE 83 U/L (45-117)
[2016-08-14 12:15] LABS: POTASSIUM 2.7 MEQ/L (3.5-5.1)
[2016-08-14] MEDS ORDERED: POTASSIUM CHLOR 10 MEQ PREMIX 100 ML IV ONE (12:30)
[2016-08-14] MEDS ORDERED: POTASSIUM CHLORIDE 20 MEQ CONTROLLED RELEASE TAB PO ONE (12:30)
[2016-08-14 12:34] LABS: BACTERIA, URINE RARE /hpf; BLOOD, URINE NEG (NEG); GLUCOSE,URINE NEG (NEG); HYALINE CAST, URINE 3 /lpf (RARE); KETONE, URINE NEG (NEG); NITRITE,URINE NEG (NEG); SQUAMOUS EPITHELIAL CELL URINE 5 /hpf (0-5); URINE COLOR YELLOW (YELLW/STRAW)
[2016-08-14 12:36] LABS: COMMENT (UR) CATH-CULTURE IND; CULTURE IF INDICATED CATH CULTURE IND
[2016-08-14 12:51] LABS: KERATOCYTES OCC (NORMAL); PLATELET ESTIMATE SMEAR LOW (NORMAL); PLATELET MORPHOLOGY NORMAL (NORMAL); SCAN/DIFF AUTO DIFF CONFIRMED
--- NOTE | 2016-08-14 12:55 | RADRPT ---
EXAM DATE/TIME: 08/14/2016 12:20 [facility] COMPARISON: No previous studies available for comparison. INDICATIONS : Bilateral leg swelling. MEDICAL HISTORY : Cirrhosis. Hepatitis C. Myelopathy. Scoliosis. SURGICAL HISTORY : Right hip replacement two weeks ago. Ankle surgery. Tubal ligation. ENCOUNTER: Initial ACUITY: 2 weeks PAIN SCORE: 10/10 LOCATION: Bilateral TECHNIQUE: Venous ultrasound of the left and right leg was performed from the inguinal ligament to the proximal calf. Real-time, color Doppler and spectral tracing, compression and augmentation techniques were us ed. FINDINGS: RIGHT LEG: There is normal compressibility of the deep venous system from the inguinal region to the proximal ca lf. No echogenic clot is seen in the lumen of the common femoral, femoral, popliteal, and posterior tibial veins. There is a normal response of the venous system to proximal and distal augmentation an d respiration. LEFT LEG: There is normal compressibility of the deep venous system from the inguinal region to the proximal ca lf. No echogenic clot is seen in the lumen of the common femoral, femoral, popliteal, and posterior tibial veins. There is a normal response of the venous system to proximal and distal augmentation an d respiration. CONCLUSION: 1. No evidence of deep venous thrombosis. Jama Vazquez MD on August 14, 2016 at 12:52 Board Certified Radiologist. This report was verified electronically.
[2016-08-14] MEDS ORDERED: amLODIPine BESYLATE 5 MG TAB PO PRN (13:15)
[2016-08-14] MEDS ORDERED: MAGNESIUM HYDROXIDE SUSP 30 ML CUP PO PRN (13:15)
[2016-08-14] MEDS ORDERED: PROCHLORPERAZINE 25 MG SUPP RECTAL PRN (13:15)
[2016-08-14] MEDS ORDERED: traMADol HCL 50 MG TAB PO PRN (13:15)
[2016-08-14] MEDS ORDERED: ACETAMINOPHEN 325 MG TAB PO PRN (13:15)
[2016-08-14] MEDS ORDERED: SUMAtriptan SUCCINATE 50 MG TAB PO PRN (13:15)
[2016-08-14] MEDS ORDERED: SODIUM CHLORIDE 0.9% FLUSH 10 ML FLUSH IV FLUSH PRN ×2 (13:15→13:30)
[2016-08-14] MEDS ORDERED: ACETAMINOPHEN/HYDROcodone 325 MG/7.5 MG TAB PO PRN (13:15)
[2016-08-14] MEDS ORDERED: ONDANSETRON HCL 4 MG/2 ML VIAL IVP PRN (13:15)
[2016-08-14] MEDS ORDERED: LORazepam 2 MG TAB PO PRN (13:30)
[2016-08-14] MEDS ORDERED: FLUMAZENIL 0.5 MG/5 ML VIAL IV PUSH PRN (13:30)
[2016-08-14] MEDS ORDERED: LORazepam 1 MG TAB PO PRN (13:30)
[2016-08-14] MEDS ORDERED: LORazepam 2 MG/ML VIAL IV PUSH PRN ×4 (13:30)
[2016-08-14] MEDS ORDERED: ENOXAPARIN SODIUM 40 MG/0.4 ML SYRINGE SQ SCH (14:00)
--- NOTE | 2016-08-14 14:47 | RADRPT ---
EXAM DATE/TIME: 08/14/2016 14:37 [facility] COMPARISON: No previous studies available for comparison. INDICATIONS : Right leg swelling and pain for a week. Right total hip surgery 2 weeks ago. MEDICAL HISTORY : Cirrhosis. Hepatitis C. Myelopathy. Scoliosis. SURGICAL HISTORY : Right hip replacement two weeks ago. Ankle surgery. Tubal ligation. ENCOUNTER: Initial ACUITY: 1 week PAIN SCORE: 10/10 LOCATION: Right hip. FINDINGS: A two view examination of the right hip was performed. The patient had a bipolar hemiarthroplasty in excellent position CONCLUSION: Status post bipolar hemiarthroplasty in excellent position. Prieto Garcia MD on August 14, 2016 at 14:45 Board Certified Radiologist. This report was verified electronically.
[2016-08-14] MEDS: IBUPROFEN 800 MG TAB PO SCH (18:00)
--- NOTE | 2016-08-14 18:46 | HHI.HP ---
HPI Service [facility] Primary Care Physician Vinny Krishnan MD Admission Diagnosis Hypokalemia, hepatic encepalopathy, weakness, edema Diagnoses: Chief Complaint: generalized weakness, worsening LE edema Travel History International Travel<30 Days: No Contact w/Intl Traveler <30 Da: No Traveled to Known Affected Are: No History of Present Illness The patient presents with complaints of generalized weakness, bilateral lower extremity edema, and difficulty and bleeding. The patient was treated for a right femoral neck fracture on August 02. She was then transferred to [facility] for rehabilitation on 05 August. She is discharged home yesterday. She presented to her primary care physician's office today with the above complaints. They found her blood pressure to be low. They also found that she had 3+ pitting edema to her bilateral lower extremities. She denies any fevers, chills. She denies any shortness of breath. She does report that she is currently on the transplant list for her liver. She has a history of cirrhosis secondary to alcohol as well as hepatitis C. The patient lives alone and states it's very difficult, however she doesn't want to go back to SNF. Says she can't ambulate to the toilet secondary to her swelling. Patient also complaints of "fogginess in her brain". Says she was not taking lactulose and rifaximin at SNF. Otherwise she has no complaints. No cp, sob, n/v/d/c. No urinary complaints. On examination, she is noted to have 3+ pitting edema. She has edema around her surgical incision site. There is some serous drainage noted from one of the staple areas. There is no evidence of cellulitis. Review of Systems Except as stated in HPI: all other systems reviewed are Neg Past Family Social History Past Medical History Liver cirrhosis, history of hepatitis C treated as outpatient Scoliosis, rheumatoid arthritis, SLE, depression and anxiety Past Surgical History Hip replacement Tubal ligation Right ankle surgery Tonsillectomy Reported Medications Reported Meds & Active Scripts Active Xarelto (Rivaroxaban) 10 Mg Tab 10 Mg PO DAILY [place] (Hydrocodone-Acetaminophen) 7.5-325 mg Tab 1 Tab PO Q4H PRN Reported Claritin (Loratadine) 10 Mg Tab 10 Mg PO DAILY Mephyton (Phytonadione) 5 Mg Tab 5 Mg PO DAILY Acidophilus (Probiotic Product) 1 Cap Cap 1 Cap PO DAILY Turmeric Curcumin (Misc Natural Products) 1 Cap 1 Cap PO DAILY Tramadol (Tramadol HCl) 50 Mg Tab 50 Mg PO Q4H PRN Ibuprofen 800 Mg Tab 800 Mg PO TID Amlodipine (Amlodipine Besylate) 5 Mg Tab 5 Mg PO HS PRN Fluoxetine HCl (Fluoxetine HCl (Pmdd)) 10 Mg Tab 20 Mg PO DAILY Nadolol 20 Mg Tab 20 Mg PO DAILY Sumatriptan (Sumatriptan Succinate) 100 Mg Tab 100 Mg PO BID PRN If a satisfactory response has not been obtained in 2 hours, a second dose may be administered Trazodone (Trazodone HCl) 50 Mg Tab 50 Mg PO HS Xifaxan (Rifaximin) 550 Mg Tab 550 Mg PO Q12HR Kristalose Packet (Lactulose) 20 Gm Pkt 20 Gm PO BID Buspirone (Buspirone HCl) 10 Mg Tab 10 Mg PO BID Papaya Enzyme (Digestive Enzymes) 1 Tab Tab 1 Tab PO DAILY Echinacea 400 Mg Cap 400 Mg PO DAILY Fir-Pzx-Jbqx-D3 (Multiple Minerals W/ Vitamins) 1 Tab Tab 1 Tab PO DAILY Vitamin B-12 (Cyanocobalamin) 1,000 Mcg Tab 1,000 Mcg PO DAILY Vitamin C (Ascorbic Acid) 500 Mg Chew 500 Mg PO DAILY Vitamin B Complex (B-Complex Vitamins) 1 Tab 1 Tab PO DAILY Multi Vitamin (Multiple Vitamin) 1 Tab Tab 1 Tab PO DAILY Flonase Nasal [place] (Fluticasone Nasal [place]) 50 Mcg/Act [place] 1 Spr EACH NARE DAILY Tizanidine (Tizanidine HCl) 2 Mg Tab 2 Mg PO DAILY Omeprazole 40 Mg Cap 40 Mg PO BID Allergies: Coded Allergies: Codeine (Verified Allergy, Unknown, ITCHING, 08/14/16) Sulfa (Verified Allergy, Unknown, 08/02/16) Family History Mother fairly healthy she was diagnosed with pulmonary embolism at the age of 87. Otherwise healthy Father of pancreatic cancer, diabetes. Aunt and uncle with Braden disease. Social History Tobacco use 3 cigarettes daily prolonged period of time. Occasional alcohol use. Says she was drinking lately more alcohol because she broke up with her boyfriend. Denies illicit drug use. Physical Exam Vital Signs Vital Signs Date Time Temp Pulse Resp B/P Pulse Ox O2 Delivery O2 Flow Rate FiO2 08/14/16 18:36 97 21 08/14/16 13:18 72 16 107/57 100 08/14/16 11:34 Room Air 08/14/16 11:21 57 18 100/65 97 08/14/16 11:05 97.6 66 18 89/58 96 Physical Exam GENERAL: This is a pleasant 61-year-old female, well-nourished, well-developed patient, in no apparent distress. SKIN: No rashes, ecchymoses or lesions. Cool and dry. HEAD: Atraumatic. Normocephalic. No temporal or scalp tenderness. EYES: Pupils equal round and reactive. Extraocular motions intact. No scleral icterus. No injection or drainage. ENT: Nose without bleeding, purulent drainage or septal hematoma. Throat without erythema, tonsillar hypertrophy or exudate. Uvula midline. Airway patent. NECK: Trachea midline. No JVD or lymphadenopathy. Supple, nontender, no meningeal signs. CARDIOVASCULAR: Regular rate and rhythm without murmurs, gallops, or rubs. RESPIRATORY: Clear to auscultation. Breath sounds equal bilaterally. No wheezes , rales, or rhonchi. GASTROINTESTINAL: Abdomen soft, non-tender, nondistended. No hepato-splenomegaly , or palpable masses. No guarding. MUSCULOSKELETAL: Anasarca. right hip reveals well approximated surgical wounds with kyara, Steri-Strips in place. 3+ LE edema. There is some surrounding ecchymosis. There is no wound dehiscence. No calf tenderness. Negative Homans sign bilaterally. NEUROLOGICAL: Awake and alert. Cranial nerves II through XII intact. Motor and sensory grossly within normal limits. Five out of 5 muscle strength in all muscle groups. Normal speech. Laboratory Laboratory Tests Test 08/14/16 08/14/16 11:30 12:15 White Blood Count 7.8 Red Blood Count 3.16 Hemoglobin 10.0 Hematocrit 30.3 Mean Corpuscular Volume 95.7 Mean Corpuscular Hemoglobin 31.6 Mean Corpuscular Hemoglobin 33.0 Concent Red Cell Distribution Width 16.2 Platelet Count 87 Mean Platelet Volume 9.1 Neutrophils (%) (Auto) 71.4 Lymphocytes (%) (Auto) 16.3 Monocytes (%) (Auto) 11.5 Eosinophils (%) (Auto) 0.3 Basophils (%) (Auto) 0.5 Neutrophils # (Auto) 5.6 Lymphocytes # (Auto) 1.3 Monocytes # (Auto) 0.9 Eosinophils # (Auto) 0.0 Basophils # (Auto) 0.0 CBC Comment AUTO DIFF Differential Comment AUTO DIFF CONFIRMED Platelet Estimate LOW Platelet Morphology Comment NORMAL Polychromasia 2.0 Keratocytes OCC Prothrombin Time 14.5 Prothromb Time International 1.3 Ratio Activated Partial 32.0 Thromboplast Time Sodium Level 138 Potassium Level 2.7 Chloride Level 102 Carbon Dioxide Level 28.4 Anion Gap 8 Blood Urea Nitrogen 10 Creatinine 0.54 Estimat Glomerular Filtration 115 Rate Random Glucose 94 Calcium Level 8.0 Total Bilirubin 2.0 Aspartate Amino Transf 40 (AST/SGOT) Alanine Aminotransferase 30 (ALT/SGPT) Alkaline Phosphatase 83 Ammonia 49 Total Protein 5.2 Albumin 2.3 Ethyl Alcohol Level 8 Urine Color YELLOW Urine Turbidity CLEAR Urine pH 6.0 Urine Specific [place] 1.013 Urine Protein NEG Urine Glucose (UA) NEG Urine Ketones NEG Urine Occult Blood NEG Urine Nitrite NEG Urine Bilirubin NEG Urine Urobilinogen LESS THAN 2.0 Urine Leukocyte Esterase TRACE Urine RBC LESS THAN 1 Urine WBC 1 Urine Squamous Epithelial 5 Cells Urine Bacteria RARE Urine Hyaline Casts 3 Microscopic Urinalysis Comment CATH-CULTURE IND Date/Time Procedure Status Source Growth 08/14/16 12:15 Urine Culture Received Urine Catheterized Urine Pending Result Diagram: 08/14/16 1130 08/14/16 1130 Imaging Last Impressions Hip X-Ray 08/14/16 1344 Signed Impressions: Service Date/Time: July 14:37 - CONCLUSION: Status post bipolar hemiarthroplasty in excellent position. Prieto Garcia MD Lower Extremity Ultrasound 08/14/16 1118 Signed Impressions: Service Date/Time: July 12:20 - CONCLUSION: 1. No evidence of deep venous thrombosis. Jama Vazquez MD Chest X-Ray 08/14/16 1118 Signed Impressions: Service Date/Time: July 11:16 - CONCLUSION: Normal examination. Prieto Garcia MD Assessment and Plan Assessment and Plan 61-year-old female who had a recent right femoral neck fracture with repair. Patient was in rehabilitation until yesterday. She presented to her PCP today who sent her here for admission. The patient has worsening swelling of her bilateral lower extremities including her upper bilateral lower extremity. There is tense skin around her surgical staple site. She has no evidence of cellulitis however is noted to be hypokalemic with a K of 2.7. She's been given by mouth and IV replacement in the emergency department. Given her diffuse swelling and the strain on her surgical site, I feel it is in her best interest to be admitted and diuresed. Unfortunate, her low pressure is extremely low and barely at 100 systolic. Metabolic encephalopathy 2/2 hyperammonia. Continue lactulose. Monitor ammonia level. Anasarca Hypotension Hypokalemia. Replaced. Monitor K level and replace as need. Recent right hip fracture 08/02/2016 Weakness History of cirrhosis of liver. History of hep C treated. Alcohol abuse. Continue multivitamin, thiamine. Anxiety/depression. Continue BuSpar 10 mg every 8 hours. Due to low BP will hold any meds and monitor BP closely Continue rifaximin Continue lactulose, monitr ammonia level. Consult PT for evaluation Full code. DVT ppx with SCD/TEDflorinda he Discussed Condition With ED physician and PA, nurse, pt Skylar Eng MD August 14, 2016 18:46
[2016-08-14] MEDS: SODIUM CHLORIDE 0.9% FLUSH 10 ML FLUSH IV FLUSH SCH ×2 (20:24→20:25)
[2016-08-14] MEDS: PANTOPRAZOLE SOD 40 MG DELAYED RELEASE TAB PO SCH (20:25)
[2016-08-14] MEDS: busPIRone HCL 10 MG TAB PO SCH (20:25)
[2016-08-14] MEDS: RIFAXIMIN 550 MG TAB PO SCH (20:25)
[2016-08-14] MEDS: traZODone HCL 50 MG TAB PO SCH (20:25)
[2016-08-14] MEDS ORDERED: LACTULOSE 20 GM PO SCH (21:00)
[2016-08-15] VITALS (10 sets, daily range): BP systolic 76–111; BP diastolic 59–78; PULSE 63–77; RESP 18–20; TEMP 98–98.3; O2SAT 94–98
[2016-08-15 07:27] LABS: AUTOMATED NEUTROPHIL # 4.8 TH/MM3 (1.8-7.7); BASOPHIL % 0.2 % (0.0-2.0); EOSINOPHIL % 0.7 % (0.0-4.0); HEMATOCRIT 31.1 % (35.0-46.0); LYMPH % 16.5 % (9.0-44.0); LYMPHOCYTE # 1.1 TH/MM3 (1.0-4.8); MEAN CELL VOLUME 95.9 FL (80.0-100.0); MEAN CORPUSCULAR HEMOGLOBIN 31.3 PG (27.0-34.0); MEAN CORPUSCULAR HGB CONC 32.6 % (32.0-36.0); MONO % 7.3 % (0.0-8.0); NEUT % 75.3 % (16.0-70.0); PLATELET COUNT 68 TH/MM3 (150-450); RED BLOOD COUNT 3.24 MIL/MM3 (4.00-5.30); RED CELL DISTRIBUTION WIDTH 15.9 % (11.6-17.2); WHITE BLOOD COUNT 6.4 TH/MM3 (4.0-11.0)
[2016-08-15 07:34] LABS: HEMO FLAGS AUTO DIFF
[2016-08-15 07:55] LABS: ALKALINE PHOSPHATASE 98 U/L (45-117); ALT (GPT) 30 U/L (10-53); ANION GAP 7 MEQ/L (5-15); AST (GOT) 41 U/L (15-37); BICARBONATE 28.7 MEQ/L (21.0-32.0); BLOOD UREA NITROGEN 11 MG/DL (7-18); CHLORIDE 106 MEQ/L (98-107); GLOMERULAR FILTRATION RATE 135 ML/MIN (>89); SODIUM (NA) 142 MEQ/L (136-145); TOTAL BILIRUBIN ADULT 3.4 MG/DL (0.2-1.0)
--- NOTE | 2016-08-15 07:57 | HHI.PR ---
Subjective Remarks With persistent hypokalemia, start PO supplement scheduled and monitor closely. Patient says she is feeling improving today. Says lE edema has improved some. Still feels tired. No n/v/d/c. Decreased appetite. No cough. No fever or chills. Pain is controlled by meds. Objective Vitals Vital Signs Date Time Temp Pulse Resp B/P Pulse Ox O2 Delivery O2 Flow Rate FiO2 08/15/16 05:00 98.3 72 18 97/63 94 08/15/16 01:11 98.3 72 18 97/69 94 08/14/16 21:11 97.3 68 16 97/70 96 08/14/16 20:00 97.3 68 16 97/76 96 08/14/16 19:40 96 21 08/14/16 19:00 18 08/14/16 18:36 97 21 08/14/16 18:20 96.6 64 18 86/69 97 08/14/16 13:18 72 16 107/57 100 08/14/16 11:34 Room Air 08/14/16 11:21 57 18 100/65 97 08/14/16 11:05 97.6 66 18 89/58 96 Result Diagram: 08/15/16 0540 08/14/16 1130 Imaging Last Impressions Hip X-Ray 08/14/16 1344 Signed Impressions: Service Date/Time: July 14:37 - CONCLUSION: Status post bipolar hemiarthroplasty in excellent position. Prieto Garcia MD Lower Extremity Ultrasound 08/14/16 1118 Signed Impressions: Service Date/Time: July 12:20 - CONCLUSION: 1. No evidence of deep venous thrombosis. Jama Vazquez MD Chest X-Ray 08/14/16 1118 Signed Impressions: Service Date/Time: July 11:16 - CONCLUSION: Normal examination. Prieto Garcia MD Objective Remarks GENERAL: This is a pleasant 61-year-old female, well-nourished, well-developed patient, in no apparent distress. SKIN: No rashes, ecchymoses or lesions. Cool and dry. HEAD: Atraumatic. Normocephalic. No temporal or scalp tenderness. EYES: Pupils equal round and reactive. Extraocular motions intact. No scleral icterus. No injection or drainage. ENT: Nose without bleeding, purulent drainage or septal hematoma. Throat without erythema, tonsillar hypertrophy or exudate. Uvula midline. Airway patent. NECK: Trachea midline. No JVD or lymphadenopathy. Supple, nontender, no meningeal signs. CARDIOVASCULAR: Regular rate and rhythm without murmurs, gallops, or rubs. RESPIRATORY: Clear to auscultation. Breath sounds equal bilaterally. No wheezes , rales, or rhonchi. GASTROINTESTINAL: Abdomen soft, non-tender, nondistended. No hepato-splenomegaly , or palpable masses. No guarding. MUSCULOSKELETAL: Anasarca. right hip reveals well approximated surgical wounds with kyara, Steri-Strips in place. 3+ LE edema. There is some surrounding ecchymosis. There is no wound dehiscence. No calf tenderness. Negative Homans sign bilaterally. NEUROLOGICAL: Awake and alert. Cranial nerves II through XII intact. Motor and sensory grossly within normal limits. Five out of 5 muscle strength in all muscle groups. Normal speech. A/P Assessment and Plan 61-year-old female who had a recent right femoral neck fracture with repair. Patient was in rehabilitation until yesterday. She presented to her PCP today who sent her here for admission. The patient has worsening swelling of her bilateral lower extremities including her upper bilateral lower extremity. There is tense skin around her surgical staple site. She has no evidence of cellulitis however is noted to be hypokalemic with a K of 2.7. She's been given by mouth and IV replacement in the emergency department. Given her diffuse swelling and the strain on her surgical site, I feel it is in her best interest to be admitted and diuresed. Unfortunate, her low pressure is extremely low and barely at 100 systolic. Metabolic encephalopathy 2/2 hyperammonia. Continue lactulose. Monitor ammonia level. Improving Anasarca. Improving. Hypotension. Improving. Monitor VS Hypokalemia. Persistent. Start scheduled KCl 40 mg po bid . Give alkso IV as need. Monitor K level and replace as need. Recent right hip fracture 08/02/2016. Consult Dr Peoples for evaluation as patient is supposed to have follow up appointment Weakness. History of cirrhosis of liver. History of hep C treated. Alcohol abuse. Continue multivitamin, thiamine. Anxiety/depression. Continue BuSpar 10 mg every 8 hours. Due to low BP will hold any meds and monitor BP closely Continue rifaximin Continue lactulose, monitr ammonia level. Consult PT for evaluation Full code. DVT ppx with SCD/florinda Chavez Discussed Condition With Nurse, patient Skylar Eng MD August 15, 2016 07:57
[2016-08-15 08:02] LABS: POTASSIUM 2.8 MEQ/L (3.5-5.1)
[2016-08-15 08:15] LABS: PLATELET ESTIMATE SMEAR LOW (NORMAL); PLATELET MORPHOLOGY NORMAL (NORMAL); SCAN/DIFF AUTO DIFF CONFIRMED
[2016-08-15] MEDS: SODIUM CHLORIDE 0.9% FLUSH 10 ML FLUSH IV FLUSH SCH ×4 (09:00→21:00)
[2016-08-15] MEDS ORDERED: NATURAL PRODUCTS PO SCH (09:00)
[2016-08-15] MEDS ORDERED: MULTIPLE MINERALS PO SCH (09:00)
[2016-08-15] MEDS ORDERED: VITAMINS PO SCH (09:00)
[2016-08-15] MEDS ORDERED: DIGESTIVE ENZYMES PO SCH (09:00)
[2016-08-15] MEDS ORDERED: ECHINACEA 400 MG PO SCH (09:00)
[2016-08-15] MEDS: POTASSIUM CHLOR 20 MEQ PREMIX 100 ML IV SCH ×2 (09:20→13:25)
[2016-08-15] MEDS: LORATADINE 10 MG TAB PO SCH (09:20)
[2016-08-15] MEDS: RIFAXIMIN 550 MG TAB PO SCH ×2 (09:20→22:04)
[2016-08-15] MEDS: FLUoxetine HCL 20 MG CAP PO SCH (09:20)
[2016-08-15] MEDS: RIVAROXABAN 10 MG TAB PO SCH (09:21)
[2016-08-15] MEDS: PHYTONADIONE 5 MG TAB PO SCH (09:21)
[2016-08-15] MEDS: THIAMINE HCL 100 MG TAB PO SCH (09:21)
[2016-08-15] MEDS: MULTIVITAMIN TAB PO SCH (09:21)
[2016-08-15] MEDS: POTASSIUM CHLORIDE 20 MEQ CONTROLLED RELEASE TAB PO SCH ×2 (09:21→22:04)
[2016-08-15] MEDS: FOLIC ACID 1 MG TAB PO SCH (09:21)
[2016-08-15] MEDS: IBUPROFEN 800 MG TAB PO SCH ×3 (09:22→18:06)
[2016-08-15] MEDS: ASCORBIC ACID 500 MG TAB PO SCH (09:22)
[2016-08-15] MEDS: busPIRone HCL 10 MG TAB PO SCH ×2 (09:22→22:05)
[2016-08-15] MEDS: CYANOCOBALAMIN 1,000 MCG TAB PO SCH (09:22)
[2016-08-15] MEDS: VITAMIN B COMPLEX/VIT C TAB PO SCH (09:22)
[2016-08-15] MEDS: PANTOPRAZOLE SOD 40 MG DELAYED RELEASE TAB PO SCH (09:22)
[2016-08-15] MEDS: NADOLOL 20 MG TAB PO SCH (09:22)
[2016-08-15] MEDS: LACTOBACILLUS ACIDOPHILUS TAB PO SCH (09:22)
[2016-08-15] MEDS ORDERED: GETGO ROLLING W1 MI1 (16:29)
[2016-08-15] MEDS ORDERED: COMMODE 3-IN-11 MIS (16:29)
[2016-08-15] MEDS ORDERED: LACTULOSE SYRUP 20 GM/30 ML CUP PO PRN (16:30)
--- NOTE | 2016-08-15 21:59 | EKG ---
Date Performed: 08/14/2016 Time Performed: 11:37:39 PTAGE: 61 years EKG: SINUS BRADYCARDIA MARKED LEFT AXIS DEVIATION ABNORMAL ECG NO PREVIOUS TRACING DOCTOR: Neo Schroeder Interpretating Date/Time 08/15/2016 21:58:45
[2016-08-15] MEDS: traZODone HCL 50 MG TAB PO SCH (22:05)
[2016-08-16 04:12] VITALS: BP 94/69
[2016-08-16 05:22] VITALS: BP 99/75; PULSE 87; RESP 18; TEMP 98.2; O2SAT 96
--- NOTE | 2016-08-16 07:58 | HHI.DS ---
Discharge Summary Admission Date August 14, 2016 at 13:12 Discharge Date: August 16, 2016 Admitting Diagnosis Hypokalemia, hepatic encepalopathy, weakness, edema (1) Lower extremity edema ICD Code: R60.0 Diagnosis: Principal (2) Hepatic encephalopathy ICD Code: K72.90 Diagnosis: Principal (3) Hypokalemia ICD Code: E87.6 Diagnosis: Principal (4) Anasarca ICD Code: R60.1 Diagnosis: Principal (5) Anxiety ICD Code: F41.9 Diagnosis: Secondary (6) Femoral neck fracture ICD Code: S72.009A Diagnosis: Secondary (7) History of cirrhosis of liver ICD Code: Z87.19 Diagnosis: Secondary Procedures none Brief History - From Admission The patient presents with complaints of generalized weakness, bilateral lower extremity edema, and difficulty and bleeding. The patient was treated for a right femoral neck fracture on August 02. She was then transferred to [facility] for rehabilitation on 05 August. She is discharged home yesterday. She presented to her primary care physician's office today with the above complaints. They found her blood pressure to be low. They also found that she had 3+ pitting edema to her bilateral lower extremities. She denies any fevers, chills. She denies any shortness of breath. She does report that she is currently on the transplant list for her liver. She has a history of cirrhosis secondary to alcohol as well as hepatitis C. The patient lives alone and states it's very difficult, however she doesn't want to go back to [facility]. Says she can't ambulate to the toilet secondary to her swelling. Patient also complaints of "fogginess in her brain". Says she was not taking lactulose and rifaximin at [facility]. Otherwise she has no complaints. No cp, sob, n/v/d/c. No urinary complaints. On examination, she is noted to have 3+ pitting edema. She has edema around her surgical incision site. There is some serous drainage noted from one of the staple areas. There is no evidence of cellulitis. CBC/BMP: 08/15/16 0540 08/15/16 0540 Significant Findings Laboratory Tests Test 08/14/16 08/14/16 08/15/16 11:30 12:15 05:40 Red Blood Count 3.16 MIL/MM3 3.24 MIL/MM3 (4.00-5.30) (4.00-5.30) Hemoglobin 10.0 GM/DL 10.1 GM/DL (11.6-15.3) (11.6-15.3) Hematocrit 30.3 % 31.1 % (35.0-46.0) (35.0-46.0) Platelet Count 87 TH/MM3 68 TH/MM3 (150-450) (150-450) Neutrophils (%) (Auto) 71.4 % 75.3 % (16.0-70.0) (16.0-70.0) Monocytes (%) (Auto) 11.5 % (0.0-8.0) Platelet Estimate LOW (NORMAL) LOW (NORMAL) Polychromasia 2.0 % (0.0-1.9) Keratocytes OCC (NORMAL) Prothrombin Time 14.5 SEC (9.8-11.6) Activated Partial 32.0 SEC Thromboplast Time (24.3-30.1) Potassium Level 2.7 MEQ/L 2.8 MEQ/L (3.5-5.1) (3.5-5.1) Calcium Level 8.0 MG/DL 8.0 MG/DL (8.5-10.1) (8.5-10.1) Total Bilirubin 2.0 MG/DL 3.4 MG/DL (0.2-1.0) (0.2-1.0) Aspartate Amino Transf 40 U/L (15-37) 41 U/L (15-37) (AST/SGOT) Ammonia 49 MCMOL/L (11-32) Total Protein 5.2 GM/DL 4.8 GM/DL (6.4-8.2) (6.4-8.2) Albumin 2.3 GM/DL 2.1 GM/DL (3.4-5.0) (3.4-5.0) Ethyl Alcohol Level 8 MG/DL (0-5) Urine Leukocyte Esterase TRACE (NEG) Urine Bacteria RARE /hpf (NONE) Creatinine 0.47 MG/DL (0.50-1.00) Imaging Last Impressions Hip X-Ray 08/14/16 1344 Signed Impressions: Service Date/Time: July 14:37 - CONCLUSION: Status post bipolar hemiarthroplasty in excellent position. Prieto Garcia MD Lower Extremity Ultrasound 08/14/16 1118 Signed Impressions: Service Date/Time: , August 14, 2016 12:20 - CONCLUSION: 1. No evidence of deep venous thrombosis. Jama Vazquez MD Chest X-Ray 08/14/16 1118 Signed Impressions: Service Date/Time: , August 14, 2016 11:16 - CONCLUSION: Normal examination. Prieto Garcia MD PE at Discharge GENERAL: This is a pleasant 61-year-old female, well-nourished, well-developed patient, in no apparent distress. SKIN: No rashes, ecchymoses or lesions. Cool and dry. HEAD: Atraumatic. Normocephalic. No temporal or scalp tenderness. EYES: Pupils equal round and reactive. Extraocular motions intact. No scleral icterus. No injection or drainage. ENT: Nose without bleeding, purulent drainage or septal hematoma. Throat without erythema, tonsillar hypertrophy or exudate. Uvula midline. Airway patent. NECK: Trachea midline. No JVD or lymphadenopathy. Supple, nontender, no meningeal signs. CARDIOVASCULAR: Regular rate and rhythm without murmurs, gallops, or rubs. RESPIRATORY: Clear to auscultation. Breath sounds equal bilaterally. No wheezes , rales, or rhonchi. GASTROINTESTINAL: Abdomen soft, non-tender, nondistended. No hepato-splenomegaly , or palpable masses. No guarding. MUSCULOSKELETAL: Anasarca. right hip reveals well approximated surgical wounds with kyara, Steri-Strips in place. 3+ LE edema. There is some surrounding ecchymosis. There is no wound dehiscence. No calf tenderness. Negative Homans sign bilaterally. NEUROLOGICAL: Awake and alert. Cranial nerves II through XII intact. Motor and sensory grossly within normal limits. Five out of 5 muscle strength in all muscle groups. Normal speech. Pt update on day of discharge Feels much better today./ LE edema improved some. BP is better. She is eating better. NO n/v/d/c. Pain is controlled by meds. Hospital Course 61-year-old female who had a recent right femoral neck fracture with repair. Patient was in rehabilitation until yesterday. She presented to her PCP today who sent her here for admission. The patient has worsening swelling of her bilateral lower extremities including her upper bilateral lower extremity. There is tense skin around her surgical staple site. She has no evidence of cellulitis however is noted to be hypokalemic with a K of 2.7. She's been given by mouth and IV replacement in the emergency department. Given her diffuse swelling and the strain on her surgical site, I feel it is in her best interest to be admitted and diuresed. Unfortunate, her low pressure is extremely low and barely at 100 systolic. Metabolic encephalopathy 2/2 hyperammonia. Continue lactulose. Monitor ammonia level. Improving Anasarca. Improving. Hypotension. Improving. Monitor VS Hypokalemia. Persistent. Start scheduled KCl 40 mg po bid . Give alkso IV as need. Monitor K level and replace as need. Recent right hip fracture 08/02/2016. Consult Dr Peoples for evaluation as patient is supposed to have follow up appointment Weakness. History of cirrhosis of liver. History of hep C treated. Alcohol abuse. Continue multivitamin, thiamine. Anxiety/depression. Continue BuSpar 10 mg every 8 hours. Due to low BP will hold any meds and monitor BP closely Continue rifaximin Continue lactulose, monitr ammonia level. Consult PT for evaluation Full code. DVT ppx with SCD/TEDs, prakashto Discussed Condition With Nurse, patient Improved. Patient discharged home with home health. Commode and rolling walker at home. Patient to follow up as OP with PCP and consultants. Patient has an appointment at [facility] regarding liver transplant. Says she lives alone but has family and friends support. Pt Condition on Discharge: Stable Discharge Disposition: Disch w/ Home Health Serv Discharge Time: > 30 minutes Discharge Instructions DIET: Follow Instructions for: Heart Healthy Diet, Diabetic Diet, Liver Disease Diet Activities you can perform: Regular-No Restrictions Follow up Referrals: PCP Follow-up - 3-5 Days New Medications: Commode 3-in-1 (Commode 3-in-1) 1 Mis Mis 1 EA .ROUTE DIRECTED #1 Ref 0 EA Walker Rolling/GetGo (Walker Rolling/GetGo) 1 Mis Mis 1 EA .ROUTE DIRECTED #1 EA Continued Medications: Amlodipine (Amlodipine) 5 Mg Tab 5 MG PO HS PRN HIGH BLOOD PRESSURE #30 Ref 0 TAB Ascorbic Acid (Vitamin C) 500 Mg Chew 500 MG PO DAILY Nutritional Supplement #30 Ref 0 TAB B-Complex Vitamins (Vitamin B Complex) 1 Tab 1 TAB PO DAILY Buspirone (Buspirone) 10 Mg Tab 10 MG PO BID Anxiety Ref 0 TAB Cyanocobalamin (Vitamin B-12) 1,000 Mcg Tab 1000 MCG PO DAILY Nutritional Supplement #1 Ref 0 BOTTLE Digestive Enzymes (Papaya Enzyme) 1 Tab Tab 1 TAB PO DAILY Echinacea (Echinacea) 400 Mg Cap 400 MG PO DAILY Fluoxetine HCl (Pmdd) (Fluoxetine HCl) 10 Mg Tab 20 MG PO DAILY Fluticasone Nasal [place] (Flonase Nasal [place]) 50 Mcg/Act [place] 1 SPR EACH NARE DAILY Allergies #1 Ref 0 BOTTLE Hydrocodone-Acetaminophen ([place]) 7.5-325 mg Tab 1 TAB PO Q4H PRN PAIN #40 Ref 0 TAB Ibuprofen (Ibuprofen) 800 Mg Tab 800 MG PO TID Arthritis Pain Ref 0 TAB Lactulose Packet (Kristalose Packet) 20 Gm Pkt 20 GM PO BID Loratadine (Claritin) 10 Mg Tab 10 MG PO DAILY Allergy Management Ref 0 TAB Misc Natural Products (Turmeric Curcumin) 1 Cap 1 CAP PO DAILY Multiple Minerals W/ Vitamins (Dkf-Rzx-Ngju-D3) 1 Tab Tab 1 TAB PO DAILY Multiple Vitamin (Multi Vitamin) 1 Tab Tab 1 TAB PO DAILY TAB Nadolol (Nadolol) 20 Mg Tab 20 MG PO DAILY #30 Ref 0 TAB Omeprazole (Omeprazole) 40 Mg Cap 40 MG PO BID #30 Ref 0 CAP Phytonadione (Mephyton) 5 Mg Tab 5 MG PO DAILY Ref 0 TAB Probiotic Product (Acidophilus) 1 Cap Cap 1 CAP PO DAILY Rifaximin (Xifaxan) 550 Mg Tab 550 MG PO Q12HR Hepatic encephalopathy #60 Ref 0 TAB Rivaroxaban (Xarelto) 10 Mg Tab 10 MG PO DAILY Blood Clot Prevention #14 Ref 0 TAB Sumatriptan (Sumatriptan) 100 Mg Tab 100 MG PO BID If a satisfactory response has not been obtained in 2 hours, a second dose may be administered PRN MIGRAINE HEADACHE Ref 0 TAB Tizanidine (Tizanidine) 2 Mg Tab 2 MG PO DAILY Muscle Spasm Ref 0 TAB Tramadol (Tramadol) 50 Mg Tab 50 MG PO Q4H PRN PAIN Ref 0 TAB Trazodone (Trazodone) 50 Mg Tab 50 MG PO HS Control Depression #30 Ref 0 TAB Skylar Eng MD August 16, 2016 07:58
--- NOTE | 2016-08-16 07:59 | HHI.FF ---
Face to Face Verification Diagnosis: (1) Hepatic encephalopathy (2) Hypokalemia (3) Anasarca (4) Anxiety (5) Femoral neck fracture (6) Weakness (7) Lower extremity edema (8) History of cirrhosis of liver Physical Therapy Order: Evaluate and Treat Home Health Nursing Order: Medical education Signs/symptoms of disease process CHF education Medication education-adverse effect Nursing assessment with vital signs I have seen patient Leeann Fraser on 08/16/16. My clinical findings support the need for the requested home health care services because: Ltd mobility - disease progression Patient has SOB I certify that my clinical findings support that this patient is homebound because: Post-op weakness Unsteady gait/balance Skylar Eng MD August 16, 2016 07:59
[2016-08-16 08:00] VITALS: BP 107/85; PULSE 82; RESP 18; TEMP 98.4; O2SAT 97
[2016-08-16] MEDS: PHYTONADIONE 5 MG TAB PO SCH (08:12)
[2016-08-16] MEDS: VITAMIN B COMPLEX/VIT C TAB PO SCH (08:13)
[2016-08-16] MEDS: POTASSIUM CHLORIDE 20 MEQ CONTROLLED RELEASE TAB PO SCH (08:13)
[2016-08-16] MEDS: NADOLOL 20 MG TAB PO SCH (08:13)
[2016-08-16] MEDS: RIFAXIMIN 550 MG TAB PO SCH (08:13)
[2016-08-16] MEDS: THIAMINE HCL 100 MG TAB PO SCH (08:13)
[2016-08-16] MEDS: CYANOCOBALAMIN 1,000 MCG TAB PO SCH (08:13)
[2016-08-16] MEDS: PANTOPRAZOLE SOD 40 MG DELAYED RELEASE TAB PO SCH (08:13)
[2016-08-16] MEDS: FLUoxetine HCL 20 MG CAP PO SCH (08:13)
[2016-08-16] MEDS: LACTOBACILLUS ACIDOPHILUS TAB PO SCH (08:13)
[2016-08-16] MEDS: FOLIC ACID 1 MG TAB PO SCH (08:13)
[2016-08-16] MEDS: busPIRone HCL 10 MG TAB PO SCH (08:13)
[2016-08-16] MEDS: MULTIVITAMIN TAB PO SCH (08:13)
[2016-08-16] MEDS: RIVAROXABAN 10 MG TAB PO SCH (08:13)
[2016-08-16] MEDS: ASCORBIC ACID 500 MG TAB PO SCH (08:13)
[2016-08-16] MEDS: LORATADINE 10 MG TAB PO SCH (08:14)
[2016-08-16] MEDS: IBUPROFEN 800 MG TAB PO SCH (08:14)
[2016-08-16] MEDS: SODIUM CHLORIDE 0.9% FLUSH 10 ML FLUSH IV FLUSH SCH (08:15)
[2016-08-16 08:46] LABS: AUTOMATED NEUTROPHIL # 5.3 TH/MM3 (1.8-7.7); BASOPHIL % 0.5 % (0.0-2.0); EOSINOPHIL % 0.6 % (0.0-4.0); HEMATOCRIT 36.1 % (35.0-46.0); LYMPH % 14.3 % (9.0-44.0); MEAN CELL VOLUME 96.2 FL (80.0-100.0); MEAN CORPUSCULAR HEMOGLOBIN 31.2 PG (27.0-34.0); MEAN CORPUSCULAR HGB CONC 32.4 % (32.0-36.0); MONO % 8.1 % (0.0-8.0); NEUT % 76.5 % (16.0-70.0); PLATELET COUNT 88 TH/MM3 (150-450); RED BLOOD COUNT 3.75 MIL/MM3 (4.00-5.30); RED CELL DISTRIBUTION WIDTH 15.9 % (11.6-17.2); WHITE BLOOD COUNT 6.9 TH/MM3 (4.0-11.0)
[2016-08-16 08:55] LABS: HEMO FLAGS AUTO DIFF
[2016-08-16] MEDS ORDERED: FLUTICASONE PROPIONATE 50 MCG/ACT 16 GM NASAL SPRAY NASAL SCH (09:00)
[2016-08-16 09:04] LABS: BICARBONATE 28.4 MEQ/L (21.0-32.0)
[2016-08-16 09:11] LABS: PLATELET ESTIMATE SMEAR LOW (NORMAL); PLATELET MORPHOLOGY NORMAL (NORMAL); SCAN/DIFF AUTO DIFF CONFIRMED
== END 2016-08-16 12:10 | disposition home or self-care (01) ==
LOC: NEPE 11:04 → NEDA 13:12 → PH3B 18:03
PROVIDERS: ADMIT Hospitalist; ATTEND Hospitalist
DX: K72.90 Hepatic failure, unspecified without coma (principal); I95.9 Hypotension, unspecified; E87.6 Hypokalemia; E72.20 Disorder of urea cycle metabolism, unspecified; G93.41 Metabolic encephalopathy; S72.009A Fracture of unspecified part of neck of unspecified femur, initial encounter for closed fracture; K70.30 Alcoholic cirrhosis of liver without ascites; F10.10 Alcohol abuse, uncomplicated; R82.79 Other abnormal findings on microbiological examination of urine; I10 Essential (primary) hypertension; F41.9 Anxiety disorder, unspecified; L29.9 Pruritus, unspecified; F32.9 Major depressive disorder, single episode, unspecified; M32.9 Systemic lupus erythematosus, unspecified; M06.9 Rheumatoid arthritis, unspecified; Z76.82 Awaiting organ transplant status; F17.210 Nicotine dependence, cigarettes, uncomplicated; M41.9 Scoliosis, unspecified; Z96.641 Presence of right artificial hip joint; R60.0 Localized edema
CPT/HCPCS: 71010; 73502; 80048; 80053; 80307; 81001; 82140; 83735; 85025; 85610; 85730; 87086; 87106; 93005; 93970; 97162; 99285; G0378; G8987; G8988; J1650; J3480

== ENCOUNTER 2016-08-25 07:28 | Inpatient (IN) | payer MEDICARE, OTHER ==
[~2016-08-25] VITALS: Ht 167.6 cm; Wt 76.0 kg
[2016-08-25] VITALS (7 sets, daily range): BP systolic 110–137; BP diastolic 65–88; PULSE 93–104; RESP 16–24; TEMP 96.5–98.3; O2SAT 95–98
[~2016-08-25 07:28] MED LIST changes: -CALCTAB19 PO; +COMMODE 3-IN-11 MIS; +ECHI400C2 PO; -ERGO1CAP30 PO; +FLUO1TAB15 PO; -FOLI1TAB4 PO; +GETGO ROLLING W1 MI1; +IBUP800T23 PO; +KRIS20PA4 PO; -LACT10SO PO; +LORA-361 PO; +MULT-118 PO; +MULT-135 PO; +NADO20TA PO; +OMEP40CA2 PO; +PAPATAB PO; +PHYT5TAB2 PO; +PROB1CAP12 PO; +SUMA100T2 PO; +TIZA2TAB PO; +TRAM50TA PO; +TRAZ50TA12 PO; +TURMCAP PO; +VITA10002 PO; -VITA100T2 PO; -VITA2000 PO; +VITA500C9 PO; +VITATAB11 PO; -WALKER/ADULT/FO1 MIS; +XIFA550T4 PO; -ZYRT10CA PO
[2016-08-25] MEDS ORDERED: PROB1TAB4 PO (08:15)
[2016-08-25] MEDS ORDERED: SPIR50TA PO (08:19)
[2016-08-25] MEDS ORDERED: FUROSEMIDE 40 MG/4 ML VIAL IV PUSH ONE (08:30)
[2016-08-25] MEDS ORDERED: CLINDAMYCIN INJ 600 MG in SODIUM CHLORIDE 0.9% INJ 100 ML IV ONE (08:30)
[2016-08-25 08:58] LABS: AUTOMATED NEUTROPHIL # 3.5 TH/MM3 (1.8-7.7); BASOPHIL % 0.3 % (0.0-2.0); EOSINOPHIL % 0.7 % (0.0-4.0); HEMATOCRIT 30.2 % (35.0-46.0); LYMPH % 18.4 % (9.0-44.0); LYMPHOCYTE # 0.9 TH/MM3 (1.0-4.8); MEAN CELL VOLUME 94.2 FL (80.0-100.0); MEAN CORPUSCULAR HEMOGLOBIN 31.4 PG (27.0-34.0); MEAN CORPUSCULAR HGB CONC 33.3 % (32.0-36.0); MONO % 9.6 % (0.0-8.0); PLATELET COUNT 76 TH/MM3 (150-450); RED BLOOD COUNT 3.21 MIL/MM3 (4.00-5.30); RED CELL DISTRIBUTION WIDTH 16.2 % (11.6-17.2); WHITE BLOOD COUNT 4.9 TH/MM3 (4.0-11.0)
[2016-08-25 09:02] LABS: HEMO FLAGS AUTO DIFF
--- NOTE | 2016-08-25 09:05 | RADRPT ---
EXAM DATE/TIME: 08/25/2016 08:41 [place] COMPARISON: US LEG BILATERAL VENOUS DOPPLER, August 14, 2016, 12:20. INDICATIONS : Bilateral leg edema. MEDICAL HISTORY : Hypertension. Arthritis. Osteoporosis. Dsypnea. Liver failure with Hep C. Cirrhosis. Pulmonary emboli sm. Depression. Anxiety. Substance use. Anticoagulant therapy. SURGICAL HISTORY : Tonsillectomy.Tubal ligation. Right hip arthroplasty. Right ankle. ENCOUNTER: Initial ACUITY: 3 weeks PAIN SCORE: 9/10 LOCATION: Bilateral leg. TECHNIQUE: Venous ultrasound of the left and right leg was performed from the inguinal ligament to the proximal calf. Real-time, color Doppler and spectral tracing, compression and augmentation techniques were us ed. FINDINGS: RIGHT LEG: There is normal compressibility of the deep venous system from the inguinal region to the proximal ca lf. No echogenic clot is seen in the lumen of the common femoral, femoral, popliteal, and posterior tibial veins. There is a normal response of the venous system to proximal and distal augmentation an d respiration. LEFT LEG: There is normal compressibility of the deep venous system from the inguinal region to the proximal ca lf. No echogenic clot is seen in the lumen of the common femoral, femoral, popliteal, and posterior tibial veins. There is a normal response of the venous system to proximal and distal augmentation an d respiration. CONCLUSION: No DVT is identified within either lower extremity. Kem Hernandez MD on August 25, 2016 at 9:03 Board Certified Radiologist. This report was verified electronically.
[2016-08-25 09:08] LABS: APTT (PATIENT) 31.1 SEC (24.3-30.1); INTERNATIONAL NORMALIZED RATIO 1.2 RATIO; PROTHROMBIN TIME - PATIENT 13.6 SEC (9.8-11.6)
[2016-08-25 09:14] LABS: ANION GAP 8 MEQ/L (5-15); AST (GOT) 38 U/L (15-37); BICARBONATE 24.8 MEQ/L (21.0-32.0); BLOOD UREA NITROGEN 6 MG/DL (7-18); CHLORIDE 106 MEQ/L (98-107); GLOMERULAR FILTRATION RATE 120 ML/MIN (>89); POTASSIUM 3.5 MEQ/L (3.5-5.1); SODIUM (NA) 139 MEQ/L (136-145)
[2016-08-25 09:17] LABS: ALKALINE PHOSPHATASE 170 U/L (45-117); ALT (GPT) 29 U/L (10-53); TOTAL BILIRUBIN ADULT 1.6 MG/DL (0.2-1.0)
[2016-08-25 09:37] LABS: PLATELET ESTIMATE SMEAR LOW (NORMAL); PLATELET MORPHOLOGY NORMAL (NORMAL)
[2016-08-25 09:38] LABS: SCAN/DIFF AUTO DIFF CONFIRMED
--- NOTE | 2016-08-25 10:11 | PD ---
HPI Chief Complaint: Edema Time Seen by Provider: 07:45 Travel History International Travel<30 days: No Contact w/Intl Traveler<30days: No Traveled to known affect area: No History of Present Illness HPI This 61-year-old woman who presents to the emergency department complaining of increasing edema in both lower extremities with past several weeks. She started getting more edema in her right lower extremity and is been more red and warm and swollen. She fell is beginning of July and had a hip fracture was fixed by Dr. Guzman. She saw him recently officer follow-up and placed her on some antibiotics for the swelling. She is on hospice with [facility] for cirrhosis related to hepatitis C and alcohol use. They've been adjusting her diuretics and adding Lasix to her metallic zone. Despite that she 's had worsening edema, worsening pain redness and swelling in her right leg. History Past Medical History Narrative Medical Liver failure/cirrhosis/hepatitis C History of cocaine and alcohol use Hypertension Menopausal: Yes Social History Alcohol Use: No (QUIT) Tobacco Use: Yes (04/02 PPD) Allergies-Medications (Allergen,Severity, Reaction): Coded Allergies: Codeine (Verified Allergy, Unknown, ITCHING, 08/25/16) Sulfa (Verified Allergy, Unknown, 08/25/16) Reported Meds & Prescriptions Reported Meds & Active Scripts Active Walker Rolling/GetGo (Device) 1 Mis Mis 1 Ea .ROUTE DIRECTED Commode 3-in-1 (Device) 1 Mis Mis 1 Ea .ROUTE DIRECTED [place] (Hydrocodone-Acetaminophen) 7.5-325 mg Tab 1 Tab PO Q4H PRN Reported Spironolactone 50 Mg Tab 50 Mg PO BIDPC Acidophilus Probiotic (Probiotic Product) 1 Tab Tab 1 Tab PO DAILY Ibuprofen 800 Mg Tab 800 Mg PO TID Fluoxetine HCl (Fluoxetine HCl (Pmdd)) 10 Mg Tab 20 Mg PO DAILY Sumatriptan (Sumatriptan Succinate) 100 Mg Tab 100 Mg PO BID PRN If a satisfactory response has not been obtained in 2 hours, a second dose may be administered Trazodone (Trazodone HCl) 50 Mg Tab 50 Mg PO HS Xifaxan (Rifaximin) 550 Mg Tab 550 Mg PO Q12HR Kristalose Packet (Lactulose) 20 Gm Pkt 20 Gm PO BID Buspirone (Buspirone HCl) 10 Mg Tab 10 Mg PO BID Papaya Enzyme (Digestive Enzymes) 1 Tab Tab 1 Tab PO DAILY Echinacea 400 Mg Cap 400 Mg PO DAILY Rtz-Thh-Peih-D3 (Multiple Minerals W/ Vitamins) 1 Tab Tab 1 Tab PO DAILY Vitamin B-12 (Cyanocobalamin) 1,000 Mcg Tab 1,000 Mcg PO DAILY Vitamin B Complex (B-Complex Vitamins) 1 Tab 1 Tab PO DAILY Flonase Nasal [place] (Fluticasone Nasal [place]) 50 Mcg/Act [place] 1 Spr EACH NARE DAILY Tizanidine (Tizanidine HCl) 2 Mg Tab 2 Mg PO DAILY Omeprazole 40 Mg Cap 40 Mg PO BID Review of Systems Except as stated in HPI: all other systems reviewed are Neg Physical Exam Narrative GENERAL: Well-appearing 61-year-old woman, no acute distress. SKIN: Focused skin assessment warm/dry. HEAD: Atraumatic. Normocephalic. EYES: Pupils equal and round. No scleral icterus. No injection or drainage. ENT: No nasal bleeding or discharge. Mucous membranes pink and moist. NECK: Trachea midline. No JVD. CARDIOVASCULAR: Regular rate and rhythm. No murmur appreciated. RESPIRATORY: No accessory muscle use. Some coarse breath sounds in both lungs. GASTROINTESTINAL: Abdomen soft, non-tender, nondistended. Hepatic and splenic margins not palpable. MUSCULOSKELETAL marked edema both lower extremities. The red leg is erythematous and warm. Pulses are difficult to palpate but the both feet seem well-perfused. Data Data Last Documented VS Vital Signs Date Time Temp Pulse Resp B/P Pulse Ox O2 Delivery O2 Flow Rate FiO2 08/25/16 07:30 97.9 97 24 122/73 95 Room Air Orders Us Leg Venous Doppler Bilat (08/25/16 ) Complete Blood Count With Diff (08/25/16 08:25) Comprehensive Metabolic Panel (08/25/16 08:25) Act Partial Throm Time (Ptt) (08/25/16 08:25) Prothrombin Time / Inr (Pt) (08/25/16 08:25) Iv Access Insert/Monitor (08/25/16 08:25) Furosemide Inj (Lasix Inj) (08/25/16 08:30) Clindamycin Inj (Cleocin Inj) (08/25/16 08:30) Admit Order (Ed Use Only) (08/25/16 ) Hospice Consult (08/25/16 10:03) Admit To Inpatient (08/25/16 ) Vital Signs (Adult) Q4H (08/25/16 10:03) Intake + Output SARAH.QSHIFT (08/25/16 10:03) Diet Heart Healthy (08/25/16 Lunch) Sodium Chloride 0.9% Flush (Ns Flush) (08/25/16 10:15) Sodium Chloride 0.9% Flush (Ns Flush) (08/25/16 21:00) Acetaminophen (Tylenol) (08/25/16 10:15) Ondansetron Inj (Zofran Inj) (08/25/16 10:15) Temazepam (Restoril) (08/25/16 10:15) Comprehensive Metabolic Panel (08/26/16 06:00) Complete Blood Count With Diff (08/26/16 06:00) Resp Oxygen Antoine C Titrat 1-4 L (08/25/16 ) Pt Request For Service (08/25/16 10:03) Case Management Consult (08/25/16 10:03) Enoxaparin Inj (Lovenox Inj) (08/25/16 10:15) Scd Bilateral/Knee High SARAH.BID (08/25/16 10:03) Brady Bilateral/Knee High SARAH.QSHIFT (08/25/16 10:03) Docusate Sodium-Senna (Ashley-Colace) (08/25/16 21:00) Magnesium Hydroxide Liq (Milk Of Magnesi (08/25/16 10:15) Sennosides (Senokot) (08/25/16 10:15) Bisacodyl Supp (Dulcolax Supp) (08/25/16 10:15) Lactulose Liq (Lactulose Liq) (08/25/16 10:15) Inpatient Certification (08/25/16 ) Labs Laboratory Tests Test 08/25/16 08:45 White Blood Count 4.9 TH/MM3 Red Blood Count 3.21 MIL/MM3 Hemoglobin 10.1 GM/DL Hematocrit 30.2 % Mean Corpuscular Volume 94.2 FL Mean Corpuscular Hemoglobin 31.4 PG Mean Corpuscular Hemoglobin 33.3 % Concent Red Cell Distribution Width 16.2 % Platelet Count 76 TH/MM3 Mean Platelet Volume 8.9 FL Neutrophils (%) (Auto) 71.0 % Lymphocytes (%) (Auto) 18.4 % Monocytes (%) (Auto) 9.6 % Eosinophils (%) (Auto) 0.7 % Basophils (%) (Auto) 0.3 % Neutrophils # (Auto) 3.5 TH/MM3 Lymphocytes # (Auto) 0.9 TH/MM3 Monocytes # (Auto) 0.5 TH/MM3 Eosinophils # (Auto) 0.0 TH/MM3 Basophils # (Auto) 0.0 TH/MM3 CBC Comment AUTO DIFF Differential Comment AUTO DIFF CONFIRMED Platelet Estimate LOW Platelet Morphology Comment NORMAL Prothrombin Time 13.6 SEC Prothromb Time International 1.2 RATIO Ratio Activated Partial 31.1 SEC Thromboplast Time Sodium Level 139 MEQ/L Potassium Level 3.5 MEQ/L Chloride Level 106 MEQ/L Carbon Dioxide Level 24.8 MEQ/L Anion Gap 8 MEQ/L Blood Urea Nitrogen 6 MG/DL Creatinine 0.52 MG/DL Estimat Glomerular Filtration 120 ML/MIN Rate Random Glucose 131 MG/DL Calcium Level 7.6 MG/DL Total Bilirubin 1.6 MG/DL Aspartate Amino Transf 38 U/L (AST/SGOT) Alanine Aminotransferase 29 U/L (ALT/SGPT) Alkaline Phosphatase 170 U/L Total Protein 5.3 GM/DL Albumin 2.2 GM/DL [facility] Medical Decision Making Medical Screen Exam Complete: Yes Emergency Medical Condition: Yes Interpretation(s) LABS: CBC remarkable for mild anemia. CMP remarkable for elevated total bili 1.6, low total protein and albumin INR 1.2 Bilateral lower extremity ultrasound: Negative for DVT Differential Diagnosis Edema, cellulitis, DVT, other Narrative Course Medical decision making 61-year-old woman with bilateral extremity edema related to cirrhosis. Now with cellulitis in the right leg. Unrelieved despite antibiotics, and aggressive outpatient diuresis. We'll plan on admission. Diagnosis Primary Impression: Lower extremity edema Additional Impressions: History of cirrhosis of liver Cellulitis of right lower extremity Admitting Information Admitting Physician Requests: Admit Prieto Berg MD August 25, 2016 10:11
[2016-08-25] MEDS ORDERED: ACETAMINOPHEN 325 MG TAB PO PRN (10:15)
[2016-08-25] MEDS ORDERED: SUMAtriptan SUCCINATE 50 MG TAB PO PRN (10:15)
[2016-08-25] MEDS ORDERED: LACTULOSE SYRUP 20 GM/30 ML CUP PO PRN (10:15)
[2016-08-25] MEDS ORDERED: SODIUM CHLORIDE 0.9% FLUSH 10 ML FLUSH IV FLUSH PRN (10:15)
[2016-08-25] MEDS ORDERED: SENNOSIDES 8.6 MG TAB PO PRN (10:15)
[2016-08-25] MEDS ORDERED: MAGNESIUM HYDROXIDE SUSP 30 ML CUP PO PRN (10:15)
[2016-08-25] MEDS ORDERED: TEMAZEPAM 15 MG CAP PO PRN (10:15)
[2016-08-25] MEDS ORDERED: BISACODYL 10 MG SUPP RECTAL PRN (10:15)
[2016-08-25] MEDS ORDERED: POTASSIUM CHLORIDE 20 MEQ CONTROLLED RELEASE TAB PO ONE (10:15)
[2016-08-25] MEDS ORDERED: ONDANSETRON HCL 4 MG/2 ML VIAL IVP PRN (10:15)
[2016-08-25] MEDS: POTASSIUM CHLORIDE 20 MEQ CONTROLLED RELEASE TAB PO SCH (10:33)
[2016-08-25] MEDS: ENOXAPARIN SODIUM 40 MG/0.4 ML SYRINGE SQ SCH (11:51)
--- NOTE | 2016-08-25 12:03 | HHI.HP ---
HPI Service [facility] Hospitalists Primary Care Physician Vinny Krishnan MD Admission Diagnosis cellulitis, edema Diagnoses: Travel History International Travel<30 Days: No Contact w/Intl Traveler <30 Da: No Traveled to Known Affected Are: No History of Present Illness This 61-year-old woman with PMH of ascites, liver cirrhosis, hep c, RA/SLE, depression/anxiety, on home with hospice, who presents to the emergency department complaining of increasing edema in both lower extremities with past several weeks. She started getting more edema in her right lower extremity and is been more red and warm and swollen. She fell is beginning of July and had a hip fracture was fixed by Dr. Peoples. She saw him recently officer follow-up and placed her on some antibiotics for the swelling. She is on hospice with [facility] hospice for cirrhosis related to hepatitis C and alcohol use. They've been adjusting her diuretics and adding Lasix to her metallic zone. Despite that she's had worsening edema, worsening pain, redness and swelling in her right leg. Review of Systems Except as stated in HPI: all other systems reviewed are Neg Past Family Social History Past Medical History Liver cirrhosis, history of hepatitis C treated as outpatient Scoliosis, rheumatoid arthritis, SLE, depression and anxiety Past Surgical History Hip replacement Tubal ligation Right ankle surgery Tonsillectomy Reported Medications Reported Meds & Active Scripts Active Walker Rolling/GetGo (Device) 1 Mis Mis 1 Ea .ROUTE DIRECTED Commode 3-in-1 (Device) 1 Mis Mis 1 Ea .ROUTE DIRECTED [place] (Hydrocodone-Acetaminophen) 7.5-325 mg Tab 1 Tab PO Q4H PRN Reported Spironolactone 50 Mg Tab 50 Mg PO BIDPC Acidophilus Probiotic (Probiotic Product) 1 Tab Tab 1 Tab PO DAILY Ibuprofen 800 Mg Tab 800 Mg PO TID Fluoxetine HCl (Fluoxetine HCl (Pmdd)) 10 Mg Tab 20 Mg PO DAILY Sumatriptan (Sumatriptan Succinate) 100 Mg Tab 100 Mg PO BID PRN If a satisfactory response has not been obtained in 2 hours, a second dose may be administered Trazodone (Trazodone HCl) 50 Mg Tab 50 Mg PO HS Xifaxan (Rifaximin) 550 Mg Tab 550 Mg PO Q12HR Kristalose Packet (Lactulose) 20 Gm Pkt 20 Gm PO BID Buspirone (Buspirone HCl) 10 Mg Tab 10 Mg PO BID Papaya Enzyme (Digestive Enzymes) 1 Tab Tab 1 Tab PO DAILY Echinacea 400 Mg Cap 400 Mg PO DAILY Lzx-Xvo-Wfcj-D3 (Multiple Minerals W/ Vitamins) 1 Tab Tab 1 Tab PO DAILY Vitamin B-12 (Cyanocobalamin) 1,000 Mcg Tab 1,000 Mcg PO DAILY Vitamin B Complex (B-Complex Vitamins) 1 Tab 1 Tab PO DAILY Flonase Nasal [employer] (Fluticasone Nasal [employer]) 50 Mcg/Act [employer] 1 Spr EACH NARE DAILY Tizanidine (Tizanidine HCl) 2 Mg Tab 2 Mg PO DAILY Omeprazole 40 Mg Cap 40 Mg PO BID Allergies: Coded Allergies: Codeine (Verified Allergy, Unknown, ITCHING, 08/25/16) Sulfa (Verified Allergy, Unknown, 08/25/16) Family History Mother fairly healthy she was diagnosed with pulmonary embolism at the age of 87. Otherwise healthy Father of pancreatic cancer, diabetes. Aunt and uncle with Braden disease. Social History Tobacco use 3 cigarettes daily prolonged period of time. Occasional alcohol use. Says she was drinking lately more alcohol because she broke up with her boyfriend. Denies illicit drug use. Physical Exam Vital Signs Vital Signs Date Time Temp Pulse Resp B/P Pulse Ox O2 Delivery O2 Flow Rate FiO2 08/25/16 07:30 97.9 97 24 122/73 95 Room Air Physical Exam GENERAL: This is a well-nourished, well-developed patient, in no apparent distress. SKIN: Cool and dry. HEAD: Atraumatic. Normocephalic. No temporal or scalp tenderness. EYES: Pupils equal round and reactive. Extraocular motions intact. No scleral icterus. No injection or drainage. ENT: Nose without bleeding, purulent drainage or septal hematoma. Throat without erythema, tonsillar hypertrophy or exudate. Uvula midline. Airway patent. NECK: Trachea midline. No JVD or lymphadenopathy. Supple, nontender. CARDIOVASCULAR: Regular rate and rhythm without murmurs, gallops, or rubs. RESPIRATORY: Clear to auscultation. Breath sounds equal bilaterally. No wheezes , rales, or rhonchi. GASTROINTESTINAL: Abdomen soft, non-tender, nondistended. No hepato-splenomegaly , or palpable masses. No guarding. MUSCULOSKELETAL: Right leg is erythematous and warm up to mid calf . Extremities without clubbing, cyanosis. No joint tenderness, effusion. 2+ LE edema noted. No calf tenderness. Negative Homans sign bilaterally. NEUROLOGICAL: Awake and alert. Cranial nerves II through XII intact. Motor and sensory grossly within normal limits. Five out of 5 muscle strength in all muscle groups. Normal speech. Laboratory Laboratory Tests Test 08/25/16 08:45 White Blood Count 4.9 Red Blood Count 3.21 Hemoglobin 10.1 Hematocrit 30.2 Mean Corpuscular Volume 94.2 Mean Corpuscular Hemoglobin 31.4 Mean Corpuscular Hemoglobin 33.3 Concent Red Cell Distribution Width 16.2 Platelet Count 76 Mean Platelet Volume 8.9 Neutrophils (%) (Auto) 71.0 Lymphocytes (%) (Auto) 18.4 Monocytes (%) (Auto) 9.6 Eosinophils (%) (Auto) 0.7 Basophils (%) (Auto) 0.3 Neutrophils # (Auto) 3.5 Lymphocytes # (Auto) 0.9 Monocytes # (Auto) 0.5 Eosinophils # (Auto) 0.0 Basophils # (Auto) 0.0 CBC Comment AUTO DIFF Differential Comment AUTO DIFF CONFIRMED Platelet Estimate LOW Platelet Morphology Comment NORMAL Prothrombin Time 13.6 Prothromb Time International 1.2 Ratio Activated Partial 31.1 Thromboplast Time Sodium Level 139 Potassium Level 3.5 Chloride Level 106 Carbon Dioxide Level 24.8 Anion Gap 8 Blood Urea Nitrogen 6 Creatinine 0.52 Estimat Glomerular Filtration 120 Rate Random Glucose 131 Calcium Level 7.6 Total Bilirubin 1.6 Aspartate Amino Transf 38 (AST/SGOT) Alanine Aminotransferase 29 (ALT/SGPT) Alkaline Phosphatase 170 Total Protein 5.3 Albumin 2.2 Result Diagram: 08/25/16 0845 08/25/16 0845 Imaging Last Impressions Lower Extremity Ultrasound 08/25/16 0000 Signed Impressions: Service Date/Time: Thursday, August 25, 2016 08:41 - CONCLUSION: No DVT is identified within either lower extremity. Kem Hernandez MD Assessment and Plan Assessment and Plan 61-year-old female who had a recent right femoral neck fracture with repair, presented for eval of leg cellulitis, failed OP treatment. Hospice is following also. Right leg cellulitis, failed outpatient treatment. Started clinda IV ABX. Monitor Wound cultures if obtainable. No temp and no leukocytosis. Monitor Anasarca Hypotension Recent right hip fracture 08/02/2016. Seen as OP by Dr Peoples, surgical wound healing well. Weakness History of cirrhosis of liver. History of hep C treated. Alcohol abuse. Continue multivitamin, thiamine. Anxiety/depression. Continue BuSpar 10 mg every 8 hours. Due to low BP will hold any meds and monitor BP closely Continue rifaximin Continue lactulose, monitr ammonia level. Consult PT for evaluation Full code. DVT ppx with SCD/TEDs, lovenox Discussed Condition With patient, nurse, hospice, ED physician Dr Berg Physician Certification 2 Midnight Certification Type: Admission for Inpatient Services Order for Inpatient Services The services are ordered in accordance with Medicare regulations or non- Medicare payer requirements, as applicable. In the case of services not specified as inpatient-only, they are appropriately provided as inpatient services in accordance with the 2-midnight benchmark. Estimated LOS (days): 5 days is the estimated time the patient will need to remain in the hospital, assuming treatment plan goals are met and no additional complications. Post-Hospital Plan: Home (home with hospice) Skylar Eng MD August 25, 2016 12:03
[2016-08-25] MEDS: ACETAMINOPHEN/HYDROcodone 325 MG/7.5 MG TAB PO PRN ×2 (12:30→21:25)
[2016-08-25] MEDS: FUROSEMIDE 40 MG TAB PO SCH (16:47)
[2016-08-25] MEDS: SPIRONOLACTONE 50 MG TAB PO SCH (16:47)
[2016-08-25] MEDS: CLINDAMYCIN INJ 900 MG in SODIUM CHLORIDE 0.9% INJ 100 ML IV SCH (16:48)
[2016-08-25] MEDS ORDERED: traZODone HCL 50 MG TAB PO SCH (21:00)
[2016-08-25] MEDS ORDERED: LACTULOSE 20 GM PO SCH (21:00)
[2016-08-25] MEDS: busPIRone HCL 10 MG TAB PO SCH (21:24)
[2016-08-25] MEDS: RIFAXIMIN 550 MG TAB PO SCH (21:24)
[2016-08-25] MEDS: SODIUM CHLORIDE 0.9% FLUSH 10 ML FLUSH IV FLUSH SCH (21:24)
[2016-08-25] MEDS: PANTOPRAZOLE SOD 40 MG DELAYED RELEASE TAB PO SCH (21:24)
[2016-08-25] MEDS: DOCUSATE SODIUM 50 MG/SENNA 8.6 MG TAB PO SCH (21:24)
[2016-08-26] VITALS: BP 117/74; PULSE 100; RESP 20; TEMP 99.5; O2SAT 94
[2016-08-26] MEDS: CLINDAMYCIN INJ 900 MG in SODIUM CHLORIDE 0.9% INJ 100 ML IV SCH ×2 (01:32→08:04)
[2016-08-26 05:15] VITALS: BP 117/71; PULSE 92; RESP 20; TEMP 98.6; O2SAT 94
[2016-08-26 07:27] LABS: AUTOMATED NEUTROPHIL # 2.5 TH/MM3 (1.8-7.7); BASOPHIL % 0.3 % (0.0-2.0); EOSINOPHIL % 0.8 % (0.0-4.0); HEMATOCRIT 29.6 % (35.0-46.0); LYMPH % 23.4 % (9.0-44.0); LYMPHOCYTE # 0.9 TH/MM3 (1.0-4.8); MEAN CELL VOLUME 94.4 FL (80.0-100.0); MEAN CORPUSCULAR HEMOGLOBIN 30.6 PG (27.0-34.0); MEAN CORPUSCULAR HGB CONC 32.4 % (32.0-36.0); MONO % 12.6 % (0.0-8.0); NEUT % 62.9 % (16.0-70.0); PLATELET COUNT 68 TH/MM3 (150-450); RED BLOOD COUNT 3.14 MIL/MM3 (4.00-5.30); RED CELL DISTRIBUTION WIDTH 16.4 % (11.6-17.2)
[2016-08-26 07:34] LABS: HEMO FLAGS AUTO DIFF
[2016-08-26 08:01] LABS: BICARBONATE 28.2 MEQ/L (21.0-32.0); CALCIUM-PROTEIN CORRECTED 8.6 MG/DL (8.5-10.1); POTASSIUM 3.5 MEQ/L (3.5-5.1); TOTAL BILIRUBIN ADULT 2.2 MG/DL (0.2-1.0)
[2016-08-26] MEDS: DOCUSATE SODIUM 50 MG/SENNA 8.6 MG TAB PO SCH (08:03)
[2016-08-26] MEDS: busPIRone HCL 10 MG TAB PO SCH (08:03)
[2016-08-26] MEDS: SPIRONOLACTONE 50 MG TAB PO SCH (08:03)
[2016-08-26] MEDS: SODIUM CHLORIDE 0.9% FLUSH 10 ML FLUSH IV FLUSH SCH (08:04)
[2016-08-26] MEDS: FUROSEMIDE 40 MG TAB PO SCH (08:04)
[2016-08-26] MEDS: RIFAXIMIN 550 MG TAB PO SCH (08:04)
[2016-08-26] MEDS: POTASSIUM CHLORIDE 20 MEQ CONTROLLED RELEASE TAB PO SCH (08:04)
[2016-08-26] MEDS: PANTOPRAZOLE SOD 40 MG DELAYED RELEASE TAB PO SCH (08:04)
[2016-08-26 08:10] VITALS: BP 120/78; PULSE 90; RESP 18; TEMP 97.7; O2SAT 94
[2016-08-26 08:33] LABS: PLATELET ESTIMATE SMEAR LOW (NORMAL); PLATELET MORPHOLOGY NORMAL (NORMAL); SCAN/DIFF AUTO DIFF CONFIRMED
[2016-08-26] MEDS ORDERED: FLUTICASONE PROPIONATE 50 MCG/ACT 16 GM NASAL SPRAY EACH NARE SCH (09:00)
[2016-08-26] MEDS ORDERED: PROBIOTIC PRODUCT PO SCH (09:00)
[2016-08-26] MEDS ORDERED: MULTIVITAMINS/MINERALS THERAPEUTIC TAB PO SCH (09:00)
[2016-08-26] MEDS ORDERED: FLUoxetine HCL 20 MG CAP PO SCH (09:00)
[2016-08-26] MEDS ORDERED: DIGESTIVE ENZYMES PO SCH (09:00)
[2016-08-26] MEDS ORDERED: CYANOCOBALAMIN 1,000 MCG TAB PO SCH (09:00)
[2016-08-26 10:05] VITALS: O2SAT 93
[2016-08-26] MEDS: ENOXAPARIN SODIUM 40 MG/0.4 ML SYRINGE SQ SCH (11:27)
[2016-08-26] MEDS: ACETAMINOPHEN/HYDROcodone 325 MG/7.5 MG TAB PO PRN (11:59)
[2016-08-26 13:07] VITALS: RESP 18
--- NOTE | 2016-08-31 13:21 | HHI.DS ---
Discharge Summary Admission Date August 25, 2016 at 10:04 Discharge Date: August 26, 2016 Admitting Diagnosis cellulitis, edema (1) Lower extremity edema ICD Code: R60.0 (2) Cellulitis of right lower extremity ICD Code: L03.115 Procedures no invasive procedures. Brief History - From Admission This 61-year-old woman with PMH of ascites, liver cirrhosis, hep c, RA/SLE, depression/anxiety, on home with hospice, who presents to the emergency department complaining of increasing edema in both lower extremities with past several weeks. She started getting more edema in her right lower extremity and is been more red and warm and swollen. She fell is beginning of July and had a hip fracture was fixed by Dr. Guzman. She saw him recently officer follow-up and placed her on some antibiotics for the swelling. She is on hospice with [facility] for cirrhosis related to hepatitis C and alcohol use. They've been adjusting her diuretics and adding Lasix to her metallic zone. Despite that she's had worsening edema, worsening pain, redness and swelling in her right leg. Imaging Last Impressions Lower Extremity Ultrasound 08/25/16 0000 Signed Impressions: Service Date/Time: Thursday, August 25, 2016 08:41 - CONCLUSION: No DVT is identified within either lower extremity. Kem Hernandez MD PE at Discharge GENERAL: patient sitting up in bed. Appears comfortable. Alert and oriented 3. SKIN: Warm and dry. HEAD: Normocephalic. EYES: No scleral icterus. No injection or drainage. NECK: Supple, trachea midline. No JVD. CARDIOVASCULAR: Regular rate and rhythm without murmurs, gallops, or rubs. RESPIRATORY: Breath sounds equal bilaterally. No accessory muscle use. GASTROINTESTINAL: Abdomen soft, non-tender, nondistended. MUSCULOSKELETAL: No cyanosis. anasarca. Bilateral lower extremity edema. Erythema right lower leg. From ankle to mid calf. No abscess.no broken skin. BACK: Nontender without obvious deformity. No CVA tenderness. Pt update on day of discharge patient seen in the morning on 08/26/16. She says she is feeling all right. Pain controlled. She feels right lower extremity redness slightly better. She says she got concerned with the right lower extremity redness, and came to the hospital, however she thinks she should've called hospice instead. Hospital Course 61-year-old female who had a recent right femoral neck fracture with repair, presented for eval of leg cellulitis, failed OP treatment. Hospice is following also. Right leg cellulitis, failed outpatient treatment. Started clinda IV ABX. ultrasound negative for DVT. Cellulitis is venous stasis cellulitis, expect to improve with elevation. Patient discussed with hospice, would like to go to hospice inpatient care facility. I discussed with hospice nurse, we discussed importance of elevation, Shawn wraps, as well as trying diuretics to help with venous stasis. discharge order was entered for hospice care center. Pt Condition on Discharge: Stable Discharge Disposition: Hospice/Med Facility Discharge Time: <= 30 minutes Discharge Instructions DIET: Follow Instructions for: Heart Healthy Diet Activities you can perform: Regular-No Restrictions Mendez Brown MD Aug 31, 2016 13:21
== END 2016-08-26 14:59 | disposition hospice, inpatient (51) | DRG 603 ==
LOC: NEPC 07:28 → NEDA 10:04 → N05B 11:26
PROVIDERS: ADMIT Internal Medicine; ATTEND Internal Medicine
DX: L03.115 Cellulitis of right lower limb (principal); I95.9 Hypotension, unspecified; K74.60 Unspecified cirrhosis of liver; M32.9 Systemic lupus erythematosus, unspecified; F10.10 Alcohol abuse, uncomplicated; F32.9 Major depressive disorder, single episode, unspecified; F41.9 Anxiety disorder, unspecified; B19.20 Unspecified viral hepatitis C without hepatic coma; R60.0 Localized edema; F17.210 Nicotine dependence, cigarettes, uncomplicated; Z96.649 Presence of unspecified artificial hip joint
CPT/HCPCS: 80053; 85025; 85610; 85730; 93970; 96365; 96375; J1650; J1940